=== PATIENT | male | born 1970 | race African-American/Black ===

== ENCOUNTER 2021-09-17 16:39 | Emergency (ER) | payer OTHER, SELFPAY ==
[~2021-09-17] VITALS: Ht 172.7 cm; Wt 69.1 kg
[~2021-09-17 16:39] MED LIST: AMLO1TAB25 PO; BACL1TAB8 PO; LEVE1INJ5 SC; NOVOINJ SC; PRAV40TA2 PO; TAPA10TA2 PO
[2021-09-17] MEDS ORDERED: BASA100I SQ (16:57)
[2021-09-17] MEDS ORDERED: ASPI81TA26 PO (17:27)
[2021-09-17 18:08] LABS: BASO # 0.1 10^3/uL (0.0-0.2); BASO % 1.3 % (0.0-1.0); EOS # 0.1 10^3/uL (0.0-0.5); EOS % 0.9 % (0.0-3.0); HEMATOCRIT 41.2 % (42.0-52.0); HEMOGLOBIN 13.5 g/dl (13.5-17.5); LYMPH # 2.5 10^3/uL (1.5-5.0); LYMPH % 46.2 % (24.0-44.0); MEAN CORPUSCULAR HEMOGLOBIN 29.4 pg (27.0-33.0); MEAN CORPUSCULAR HGB CONC 32.8 g/dl (32.0-36.5); MEAN CORPUSCULAR VOLUME 89.8 fl (80.0-96.0); MONO # 0.5 10^3/uL (0.0-0.8); MONO % 9.4 % (2.0-8.0); NEUTROPHILS # 2.2 10^3/uL (1.5-8.5); NEUTROPHILS % 41.8 % (36.0-66.0); PLATELET COUNT, AUTOMATED 311 10^3/uL (150-450); RED BLOOD COUNT 4.59 10^6/uL (4.30-6.10); WHITE BLOOD COUNT 5.3 10^3/uL (4.0-10.0)
[2021-09-17 18:30] VITALS: BP 133/81
[2021-09-17 18:32] LABS: ALBUMIN 3.8 GM/DL (3.2-5.2); ALT/SGPT 44 U/L (12-78); BILIRUBIN,DIRECT 0.2 MG/DL (0.0-0.2); BILIRUBIN,TOTAL 0.4 MG/DL (0.2-1.0); BLOOD UREA NITROGEN 13 MG/DL (7-18); CARBON DIOXIDE LEVEL 30 MEQ/L (21-32); CHLORIDE LEVEL 102 MEQ/L (98-107); CREATININE FOR GFR 0.94 MG/DL (0.70-1.30); GLOMERULAR FILTRATION RATE > 60.0 (>56); GLUCOSE, FASTING 269 MG/DL (70-100); LIPASE 80 U/L (73-393); POTASSIUM SERUM 3.9 MEQ/L (3.5-5.1); SODIUM LEVEL 137 MEQ/L (136-145); TOTAL PROTEIN 7.5 GM/DL (6.4-8.2)
[2021-09-17 18:36] LABS: CK-MB VALUE MASS < 1.0 NG/ML (<3.6); CPK CREATINE PHOSPHOKINASE 157 U/L (39-308); MB/CK RELATIVE INDEX 0.64 (< OR =4)
== END 2021-09-17 18:53 | disposition home or self-care (01) ==
LOC: M ED 16:39 → EDBD 16:39 → M ED 18:53
DX: R07.9 Chest pain, unspecified (principal); I45.19 Other right bundle-branch block; E11.9 Type 2 diabetes mellitus without complications; I10 Essential (primary) hypertension; E78.5 Hyperlipidemia, unspecified; F17.200 Nicotine dependence, unspecified, uncomplicated; Z79.4 Long term (current) use of insulin; Z79.899 Other long term (current) drug therapy

== ENCOUNTER → 2021-09-24 | Outpatient (REF) ==
[~2021-09-24] MED LIST changes: +ASPI81TA26 PO; +BASA100I SQ
== END ==
LOC: M PLAIMG 11:08
PROVIDERS: ATTEND Internal Medicine
DX: M54.9 Dorsalgia, unspecified (principal); M25.561 Pain in right knee; M17.11 Unilateral primary osteoarthritis, right knee

== ENCOUNTER 2022-03-02 10:46 | Emergency (ER) | payer OTHER ==
[~2022-03-02] VITALS: Ht 172.7 cm; Wt 64.0 kg
[2022-03-02] MEDS ORDERED: ACETAMINOPHEN 325 MG TAB PO ONE (14:05)
[2022-03-02 14:23] VITALS: BP 158/88
== END 2022-03-02 14:24 | disposition home or self-care (01) ==
LOC: M ED 10:46
DX: S60.221A Contusion of right hand, initial encounter (principal); W22.09XA Striking against other stationary object, initial encounter; E11.9 Type 2 diabetes mellitus without complications; I10 Essential (primary) hypertension; E78.5 Hyperlipidemia, unspecified; F17.200 Nicotine dependence, unspecified, uncomplicated; Z79.4 Long term (current) use of insulin; Z79.899 Other long term (current) drug therapy

== ENCOUNTER 2022-12-21 17:21 | Inpatient (IN) | payer OTHER ==
[~2022-12-21] VITALS: Ht 170.2 cm; Wt 57.9 kg
[~2022-12-21 17:21] MED LIST changes: +BASA100I SC; -BASA100I SQ; +INSU100I6 SC; -LEVE1INJ5 SC
[2022-12-21] MEDS ORDERED: METOCLOPRAMIDE INJ 10MG/2ML VIAL IV ONE (18:10)
[2022-12-21] MEDS ORDERED: ONDANSETRON 4MG 2ML VIAL IV ONE (19:30)
[2022-12-21] MEDS ORDERED: NS 1,000 ML IV ONE (19:45)
[2022-12-21 20:23] LABS: APPEARANCE, URINE CLEAR (CLEAR); BACTERIA, URINE AUTO NEGATIVE (NEGATIVE); BILIRUBIN, URINE AUTO NEGATIVE (NEGATIVE); BLOOD, URINE BLOOD NEGATIVE (NEGATIVE); COLOR, URINE STRAW (YELLOW); GLUCOSE, URINE (UA) AUTO 3+ mg/dL (NEGATIVE); KETONE, URINE AUTO 2+ mg/dL (NEGATIVE); LEUKOCYTE ESTERASE, URINE AUTO NEGATIVE (NEGATIVE); MUCUS, URINE SMALL (NEGATIVE); NITRITE, URINE AUTO NEGATIVE (NEGATIVE); PROTEIN, URINE AUTO NEGATIVE (NEGATIVE); RBC, URINE AUTO 0 /HPF (0-3); SPECIFIC GRAVITY URINE AUTO 1.017 (1.002-1.035); SQUAMOUS EPITHELIAL CELL UR AU 0 /HPF (0-6); UROBILINOGEN, URINE AUTO 0.2 mg/dL (0.0-2.0); WBC, URINE AUTO 0 /HPF (0-3)
[2022-12-21 20:27] LABS: CK-MB VALUE MASS 1.3 NG/ML (<3.6)
[2022-12-21 20:29] LABS: CPK CREATINE PHOSPHOKINASE 415 U/L (46-171); MB/CK RELATIVE INDEX 0.31 (< OR =4)
[2022-12-21 20:30] LABS: THYROID STIMULATING HORMONE 0.389 uIU/ML (0.55-4.78)
[2022-12-21 20:31] LABS: FREE T4 1.07 NG/DL (0.89-1.76)
[2022-12-21 20:35] LABS: ALBUMIN 4.9 G/DL (3.2-5.2); ALKALINE PHOSPHATASE 168 U/L (46-116); ALT/SGPT 35 U/L (7.0-40); AST/SGOT 52 U/L (<34); BILIRUBIN,DIRECT 0.9 MG/DL (<0.4); BILIRUBIN,TOTAL 2.8 MG/DL (0.3-1.2); BLOOD UREA NITROGEN 19 MG/DL (9-23); CALCIUM LEVEL 9.7 MG/DL (8.5-10.1); CARBON DIOXIDE LEVEL < 10.0 MMOL/L (20-31); CHLORIDE LEVEL 97 MMOL/L (98-107); CREATININE FOR GFR 0.66 MG/DL (0.70-1.30); GLOMERULAR FILTRATION RATE > 60.0 (>56); GLUCOSE, FASTING 80 MG/DL (60-100); LIPASE < 8 U/L (12-53); MAGNESIUM LEVEL 2.4 MG/DL (1.8-2.4); POTASSIUM SERUM 5.5 MMOL/L (3.5-5.1); SODIUM LEVEL 134 MMOL/L (136-145); TOTAL PROTEIN 9.1 G/DL (5.7-8.2)
[2022-12-21] MEDS ORDERED: PROMETHAZINE 25MG/ML 1ML VIAL IV ONE (20:50)
[2022-12-21] MEDS ORDERED: ISOVUE-370 76% 100ML VIAL As Ordered ONE (20:51)
[2022-12-21 20:54] LABS: BASO # 0.1 10^3/uL (0.0-0.2); BASO % 0.5 % (0.0-1.0); HEMATOCRIT 47.2 % (42.0-52.0); HEMOGLOBIN 15.4 g/dl (13.5-17.5); LYMPH # 0.5 10^3/uL (1.5-5.0); LYMPH % 3.1 % (24.0-44.0); MEAN CORPUSCULAR HEMOGLOBIN 31.1 pg (27.0-33.0); MEAN CORPUSCULAR HGB CONC 32.6 g/dl (32.0-36.5); MEAN CORPUSCULAR VOLUME 95.4 fl (80.0-96.0); MONO # 0.9 10^3/uL (0.0-0.8); MONO % 5.7 % (2.0-8.0); NEUTROPHILS # 13.6 10^3/uL (1.5-8.5); NEUTROPHILS % 90.2 % (36.0-66.0); PLATELET COUNT, AUTOMATED 334 10^3/uL (150-450); RED BLOOD COUNT 4.95 10^6/uL (4.30-6.10); WHITE BLOOD COUNT 15.1 10^3/uL (4.0-10.0)
[2022-12-21 21:26] LABS: ABG BASE EXCESS -19.7 (-2.0-2.0); ABG O2 SATURATION 96.5 % (95.0-99.0); ABG PARTIAL PRESSURE CO2 25.1 mmHg (35.0-45.0); ABG PARTIAL PRESSURE O2 108.8 mmHg (75.0-100.0); ABG STANDARD HCO3 10.3 MEQ/L (22.0-26.0); ABG TOTAL CO2 8.8 MEQ/L (22.0-29.0); ABG pH (ARTERIAL) 7.121 UNITS (7.350-7.450)
[2022-12-21] MEDS ORDERED: PIPERACILLIN/TAZOBACTAM SOD 4.5 GM in D5W MINI-BAG PLUS 50 ML IV ONE (21:35)
[2022-12-21] MEDS ORDERED: HumuLIN R (REGULAR) INSULIN (NovoLIN R) **100U/ML** PER UNIT IV ONE (21:35)
[2022-12-21 22:04] LABS: ACETONE/KETONE > 4.50 MMOL/L (0.02-0.27)
[2022-12-21 22:42] LABS: CK-MB VALUE MASS < 1.0 NG/ML (<3.6); ETHYL ALCOHOL (ETHANOL) < 0.003 % (0.000-0.010)
[2022-12-21 22:50] LABS: BLOOD UREA NITROGEN 20 MG/DL (9-23); CALCIUM LEVEL 8.7 MG/DL (8.5-10.1); CARBON DIOXIDE LEVEL 12 MMOL/L (20-31); CHLORIDE LEVEL 100 MMOL/L (98-107); CPK CREATINE PHOSPHOKINASE 137 U/L (46-171); GLOMERULAR FILTRATION RATE > 60.0 (>56); GLUCOSE, FASTING 404 MG/DL (60-100); MB/CK RELATIVE INDEX 0.72 (< OR =4); POTASSIUM SERUM 6.2 MMOL/L (3.5-5.1); SODIUM LEVEL 134 MMOL/L (136-145)
[2022-12-21] MEDS ORDERED: INSULIN REGULAR IN 0.9 % NACL 100 UNIT in IV 1 EA IV SCH ×2 (22:55)
[2022-12-21] MEDS ORDERED: INSULIN IV RATE CHANGE DOCUMENTATION ML/HR XX SCH (22:55)
[2022-12-21 23:25] LABS: HEMOGLOBIN A1c 9.9 % (4.0-6.0)
[2022-12-21 23:35] LABS: RSV AMPLIFICATION NEGATIVE (NEGATIVE)
[2022-12-22] VITALS (15 sets, daily range): BP systolic 104–172; BP diastolic 55–89
[2022-12-22] MEDS ORDERED: NS 1,000 ML IV ONE ×2 (01:00)
[2022-12-22] MEDS ORDERED: INSULIN REGULAR IN 0.9 % NACL 100 UNIT in IV 1 EA IV SCH ×2 (01:00)
[2022-12-22] MEDS ORDERED: NS 1,000 ML IV SCH (01:00)
[2022-12-22] MEDS: INSULIN IV RATE CHANGE DOCUMENTATION ML/HR XX SCH ×3 (01:10→03:09)
[2022-12-22] MEDS ORDERED: LORazepam 2 MG/ML 1ML VIAL IV STA (01:27)
[2022-12-22] MEDS ORDERED: THIAMINE 200MG 2ML VIAL IM ONE (02:00)
[2022-12-22 02:07] LABS: BLOOD UREA NITROGEN 10 MG/DL (9-23); CALCIUM LEVEL 8.3 MG/DL (8.5-10.1); CARBON DIOXIDE LEVEL < 10.0 MMOL/L (20-31); CHLORIDE LEVEL 106 MMOL/L (98-107); CREATININE FOR GFR 0.93 MG/DL (0.70-1.30); GLOMERULAR FILTRATION RATE > 60.0 (>56); GLUCOSE, FASTING 240 MG/DL (60-100); PHOSPHORUS LEVEL 3.5 MG/DL (2.5-4.9); SODIUM LEVEL 134 MMOL/L (136-145)
[2022-12-22] MEDS ORDERED: PRAV40TA2 PO (02:08)
[2022-12-22] MEDS ORDERED: MULT-40 PO (02:08)
[2022-12-22] MEDS ORDERED: ASPI-161 PO (02:08)
[2022-12-22] MEDS ORDERED: HOME MED LIST COMPLETE! XX SCH ×2 (02:10)
[2022-12-22] MEDS ORDERED: D5W/0.9% SODIUM CHLORIDE 1,000 ML IV SCH (03:10)
[2022-12-22] MEDS ORDERED: NS 500 ML IV ONE (04:10)
[2022-12-22] MEDS: HEPARIN SOD (PORCINE) 5000UNITS/ML 1ML VIAL/SYRINGE SC SCH ×3 (05:01→21:57)
[2022-12-22 05:30] LABS: BLOOD UREA NITROGEN 13 MG/DL (9-23); CALCIUM LEVEL 7.2 MG/DL (8.5-10.1); CARBON DIOXIDE LEVEL 20 MMOL/L (20-31); CHLORIDE LEVEL 111 MMOL/L (98-107); CREATININE FOR GFR 0.75 MG/DL (0.70-1.30); GLOMERULAR FILTRATION RATE > 60.0 (>56); GLUCOSE, FASTING 186 MG/DL (60-100); PHOSPHORUS LEVEL 1.5 MG/DL (2.5-4.9); POTASSIUM SERUM 4.3 MMOL/L (3.5-5.1); SODIUM LEVEL 139 MMOL/L (136-145)
[2022-12-22] MEDS ORDERED: LORazepam 2 MG TAB PO PRN (06:10)
[2022-12-22] MEDS ORDERED: GLUCOSE 4GM CHEW TABLET PO PRN (06:10)
[2022-12-22] MEDS ORDERED: DEXTROSE 50% 50ML SYRINGE IV PRN (06:10)
[2022-12-22] MEDS ORDERED: GLUCAGON INJ 1MG VIAL SC PRN (06:10)
[2022-12-22] MEDS: LEVEMIR (INSULIN DETEMIR) 1 UNITS/0.01ML SC SCH (07:27)
[2022-12-22] MEDS: INSULIN LISPRO (NovoLOG) PER UNIT SC SCH ×3 (07:27→17:48)
[2022-12-22 07:40] LABS: VENOUS BASE EXCESS -4.5 (-2.0-2.0); VENOUS HCO3 21.2 MEQ/L (23.0-27.0); VENOUS O2 SATURATION 97.1 % (60.0-80.0); VENOUS PARTIAL PRESSURE CO2 41.5 mmHg (38.0-50.0); VENOUS PARTIAL PRESSURE O2 97.3 mmHg (30.0-50.0); VENOUS PH 7.326 UNITS (7.330-7.430); VENOUS STANDARD HCO3 20.7 MEQ/L; VENOUS TOTAL CO2 22.5 MEQ/L (24.0-28.0)
[2022-12-22] MEDS ORDERED: SODIUM PHOSPHATE INJ 20 MMOL in D5W 250 ML IV ONE (08:00)
[2022-12-22] MEDS: ASPIRIN 81MG ENTERIC TABLET PO SCH (08:08)
[2022-12-22] MEDS: MULTIVITAMINS/MINERALS THERAP 1 TAB PO SCH (08:08)
[2022-12-22] MEDS: FOLIC ACID 1MG TAB PO SCH (08:08)
[2022-12-22] MEDS: PRAVASTATIN 20 MG TAB PO SCH (08:08)
[2022-12-22] MEDS: PANTOPRAZOLE 40MG VIAL IV SCH (08:08)
[2022-12-22 08:16] LABS: BLOOD UREA NITROGEN 11 MG/DL (9-23); CALCIUM LEVEL 7.4 MG/DL (8.5-10.1); CARBON DIOXIDE LEVEL 22 MMOL/L (20-31); CHLORIDE LEVEL 113 MMOL/L (98-107); CREATININE FOR GFR 0.75 MG/DL (0.70-1.30); GLOMERULAR FILTRATION RATE > 60.0 (>56); GLUCOSE, FASTING 143 MG/DL (60-100); POTASSIUM SERUM 4.2 MMOL/L (3.5-5.1); SODIUM LEVEL 140 MMOL/L (136-145)
[2022-12-22] MEDS: THIAMINE 100 MG TAB PO SCH ×2 (12:33→20:21)
[2022-12-22] MEDS: OXAZEPAM 10MG CAP PO SCH ×2 (15:18→23:50)
[2022-12-22] MEDS ORDERED: LEVEMIR (INSULIN DETEMIR) 1 UNITS/0.01ML SC SCH (21:00)
[2022-12-22] MEDS ORDERED: INSULIN LISPRO (NovoLOG) PER UNIT SC SCH (21:00)
[2022-12-23] VITALS: BP 107/62
[2022-12-23 04:00] VITALS: BP 132/79
[2022-12-23] MEDS: HEPARIN SOD (PORCINE) 5000UNITS/ML 1ML VIAL/SYRINGE SC SCH (05:04)
[2022-12-23 05:37] LABS: BASO # 0.1 10^3/uL (0.0-0.2); BASO % 0.8 % (0.0-1.0); EOS % 0.3 % (0.0-3.0); HEMATOCRIT 40.3 % (42.0-52.0); HEMOGLOBIN 13.6 g/dl (13.5-17.5); LYMPH # 2.2 10^3/uL (1.5-5.0); LYMPH % 29.3 % (24.0-44.0); MEAN CORPUSCULAR HEMOGLOBIN 30.9 pg (27.0-33.0); MEAN CORPUSCULAR HGB CONC 33.7 g/dl (32.0-36.5); MEAN CORPUSCULAR VOLUME 91.6 fl (80.0-96.0); MONO # 0.8 10^3/uL (0.0-0.8); MONO % 10.1 % (2.0-8.0); NEUTROPHILS # 4.4 10^3/uL (1.5-8.5); NEUTROPHILS % 59.2 % (36.0-66.0); PLATELET COUNT, AUTOMATED 295 10^3/uL (150-450); WHITE BLOOD COUNT 7.4 10^3/uL (4.0-10.0)
[2022-12-23 06:18] LABS: ALKALINE PHOSPHATASE 101 U/L (46-116); ALT/SGPT 22 U/L (7.0-40); AST/SGOT 34 U/L (<34); BILIRUBIN,TOTAL 0.7 MG/DL (0.3-1.2); BLOOD UREA NITROGEN 11 MG/DL (9-23); CALCIUM LEVEL 8.6 MG/DL (8.5-10.1); CARBON DIOXIDE LEVEL 25 MMOL/L (20-31); CHLORIDE LEVEL 108 MMOL/L (98-107); CREATININE FOR GFR 0.62 MG/DL (0.70-1.30); GLOMERULAR FILTRATION RATE > 60.0 (>56); GLUCOSE, FASTING 257 MG/DL (60-100); POTASSIUM SERUM 4.3 MMOL/L (3.5-5.1); SODIUM LEVEL 140 MMOL/L (136-145); TOTAL PROTEIN 5.9 G/DL (5.7-8.2)
[2022-12-23] MEDS: INSULIN LISPRO (NovoLOG) PER UNIT SC SCH (07:30)
[2022-12-23 08:00] VITALS: BP 136/83
[2022-12-23] MEDS: ASPIRIN 81MG ENTERIC TABLET PO SCH (08:06)
[2022-12-23] MEDS: PRAVASTATIN 20 MG TAB PO SCH (08:06)
[2022-12-23] MEDS: FOLIC ACID 1MG TAB PO SCH (08:06)
[2022-12-23] MEDS: MULTIVITAMINS/MINERALS THERAP 1 TAB PO SCH (08:06)
[2022-12-23 08:07] VITALS: BP 136/83
[2022-12-23] MEDS: THIAMINE 100 MG TAB PO SCH (08:07)
[2022-12-23] MEDS: PANTOPRAZOLE 40MG VIAL IV SCH (08:08)
[2022-12-23] MEDS: LEVEMIR (INSULIN DETEMIR) 1 UNITS/0.01ML SC SCH (08:08)
[2022-12-23] MEDS ORDERED: THIA100TA PO (08:29)
== END 2022-12-23 10:15 | disposition home or self-care (01) | DRG 420 ==
LOC: M ED 17:21 → M ED INP 23:17 → M ICU 12-22 01:05
PROVIDERS: ADMIT Internal Medicine; ATTEND Family Medicine
DX: E11.10 Type 2 diabetes mellitus with ketoacidosis without coma (principal); E87.5 Hyperkalemia; I10 Essential (primary) hypertension; E80.6 Other disorders of bilirubin metabolism; F10.10 Alcohol abuse, uncomplicated; F17.210 Nicotine dependence, cigarettes, uncomplicated; R74.01 Elevation of levels of liver transaminase levels; Z79.82 Long term (current) use of aspirin; Z79.4 Long term (current) use of insulin; E05.90 Thyrotoxicosis, unspecified without thyrotoxic crisis or storm

== ENCOUNTER 2023-04-02 11:11 | Emergency (ER) | payer OTHER ==
[~2023-04-02] VITALS: Ht 172.7 cm; Wt 60.2 kg
[~2023-04-02 11:11] MED LIST changes: +ASPI-161 PO; +MULT-40 PO; +THIA100TA PO
[2023-04-02 11:13] VITALS: TEMP 97.2
[2023-04-02] MEDS ORDERED: GABA-282 PO (12:14)
[2023-04-02 12:44] VITALS: BP 132/81; O2SAT 99
== END 2023-04-02 12:44 | disposition home or self-care (01) ==
LOC: M ED 11:11
DX: E10.40 Type 1 diabetes mellitus with diabetic neuropathy, unspecified (principal); K21.9 Gastro-esophageal reflux disease without esophagitis; E03.9 Hypothyroidism, unspecified; F10.10 Alcohol abuse, uncomplicated; F17.200 Nicotine dependence, unspecified, uncomplicated; Z79.82 Long term (current) use of aspirin; Z79.4 Long term (current) use of insulin; Z79.899 Other long term (current) drug therapy

== ENCOUNTER → 2023-04-22 | Outpatient (REF) | payer OTHER ==
[~2023-04-22] MED LIST changes: +GABA-282 PO
[2023-04-22 18:53] LABS: HEMOGLOBIN A1c 10.1 % (4.0-6.0)
[2023-04-22 18:57] LABS: BASO # 0.1 10^3/uL (0.0-0.2); BASO % 1.7 % (0.0-1.0); EOS # 0.1 10^3/uL (0.0-0.5); EOS % 1.5 % (0.0-3.0); HEMATOCRIT 42.7 % (42.0-52.0); HEMOGLOBIN 13.9 g/dl (13.5-17.5); LYMPH # 1.8 10^3/uL (1.5-5.0); LYMPH % 38.5 % (24.0-44.0); MEAN CORPUSCULAR HEMOGLOBIN 30.3 pg (27.0-33.0); MEAN CORPUSCULAR HGB CONC 32.6 g/dl (32.0-36.5); MONO # 0.6 10^3/uL (0.0-0.8); MONO % 13.1 % (2.0-8.0); NEUTROPHILS # 2.1 10^3/uL (1.5-8.5); PLATELET COUNT, AUTOMATED 305 10^3/uL (150-450); RED BLOOD COUNT 4.59 10^6/uL (4.30-6.10); WHITE BLOOD COUNT 4.7 10^3/uL (4.0-10.0)
[2023-04-22 19:08] LABS: FREE T4 0.97 NG/DL (0.89-1.76); THYROID STIMULATING HORMONE 0.722 uIU/ML (0.55-4.78)
[2023-04-22 19:10] LABS: ALBUMIN 3.6 G/DL (3.2-5.2); ALKALINE PHOSPHATASE 103 U/L (46-116); ALT/SGPT 15 U/L (7.0-40); AST/SGOT 13 U/L (<34); BILIRUBIN,TOTAL 0.6 MG/DL (0.3-1.2); BLOOD UREA NITROGEN 11 MG/DL (9-23); CALCIUM LEVEL 9.2 MG/DL (8.5-10.1); CARBON DIOXIDE LEVEL 32 MMOL/L (20-31); CHLORIDE LEVEL 103 MMOL/L (98-107); CREATININE FOR GFR 0.74 MG/DL (0.70-1.30); GLOMERULAR FILTRATION RATE > 60.0 (>56); GLUCOSE, FASTING 163 MG/DL (60-100); POTASSIUM SERUM 4.2 MMOL/L (3.5-5.1); SODIUM LEVEL 141 MMOL/L (136-145); TOTAL PROTEIN 7.2 G/DL (5.7-8.2)
[2023-04-22 19:12] LABS: VITAMIN B12 LEVEL 500 PG/ML (211-911)
== END ==
LOC: M LAB REF 17:27
PROVIDERS: ATTEND Family Medicine Addiction Medicine
DX: E05.90 Thyrotoxicosis, unspecified without thyrotoxic crisis or storm (principal); E11.40 Type 2 diabetes mellitus with diabetic neuropathy, unspecified

== ENCOUNTER 2023-07-02 00:05 | Emergency (ER) | payer OTHER ==
[~2023-07-02] VITALS: Ht 172.7 cm; Wt 65.4 kg
[2023-07-02] MEDS ORDERED: NS 1,000 ML IV ONE ×2 (00:15→08:05)
[2023-07-02 00:37] LABS: ABG BASE EXCESS -3.3 (-2.0-2.0); ABG HCO3 23.2 MMOL/L (22.0-26.0); ABG PARTIAL PRESSURE CO2 47.1 mmHg (35.0-45.0); ABG PARTIAL PRESSURE O2 218.3 mmHg (75.0-100.0); ABG STANDARD HCO3 21.7 MMOL/L. (22.0-26.0); ABG TOTAL CO2 24.6 MMOL/L (22.0-29.0)
[2023-07-02 01:20] LABS: BASO # 0.1 10^3/uL (0.0-0.2); BASO % 0.8 % (0.0-1.0); EOS % 0.2 % (0.0-3.0); HEMATOCRIT 43.1 % (42.0-52.0); HEMOGLOBIN 14.4 g/dl (13.5-17.5); LYMPH # 1.2 10^3/uL (1.5-5.0); LYMPH % 14.5 % (24.0-44.0); MEAN CORPUSCULAR HEMOGLOBIN 31.5 pg (27.0-33.0); MEAN CORPUSCULAR HGB CONC 33.4 g/dl (32.0-36.5); MEAN CORPUSCULAR VOLUME 94.3 fl (80.0-96.0); MONO # 0.7 10^3/uL (0.0-0.8); NEUTROPHILS # 6.3 10^3/uL (1.5-8.5); PLATELET COUNT, AUTOMATED 267 10^3/uL (150-450); RED BLOOD COUNT 4.57 10^6/uL (4.30-6.10); WHITE BLOOD COUNT 8.3 10^3/uL (4.0-10.0)
[2023-07-02 02:00] VITALS: TEMP 96
[2023-07-02 02:01] LABS: ALKALINE PHOSPHATASE 99 U/L (46-116); ALT/SGPT 24 U/L (7.0-40); AST/SGOT 25 U/L (<34); BILIRUBIN,DIRECT 0.2 MG/DL (<0.4); BILIRUBIN,TOTAL 0.6 MG/DL (0.3-1.2); BLOOD UREA NITROGEN 7 MG/DL (9-23); CARBON DIOXIDE LEVEL 24 MMOL/L (20-31); CHLORIDE LEVEL 102 MMOL/L (98-107); CREATININE FOR GFR 0.73 MG/DL (0.70-1.30); GLOMERULAR FILTRATION RATE > 60.0 (>56); GLUCOSE, FASTING 228 MG/DL (60-100); SALICYLATE LEVEL < 3.0 MG/DL (<30); SODIUM LEVEL 141 MMOL/L (136-145); TOTAL PROTEIN 7.6 G/DL (5.7-8.2)
[2023-07-02 02:04] LABS: THYROID STIMULATING HORMONE 1.759 uIU/ML (0.55-4.78)
[2023-07-02 02:05] LABS: CPK CREATINE PHOSPHOKINASE 222 U/L (46-171)
[2023-07-02 02:31] LABS: RSV AMPLIFICATION NEGATIVE (NEGATIVE)
[2023-07-02 04:30] LABS: AMPHETAMINES LEVEL URINE NEGATIVE (NEGATIVE); BARBITURATES URINE NEGATIVE (NEGATIVE)
[2023-07-02 04:31] LABS: BENZODIAZEPINES URINE NEGATIVE (NEGATIVE); METHADONE URINE NEGATIVE (NEGATIVE); OPIATES URINE NEGATIVE (NEGATIVE); PHENCYCLIDINE URINE NEGATIVE (NEGATIVE)
[2023-07-02 04:42] LABS: CANNABINOIDS URINE POSITIVE (NEGATIVE); COCAINE METABOLITE URINE POSITIVE (NEGATIVE)
[2023-07-02] MEDS ORDERED: PANTOPRAZOLE 40MG VIAL IV ONE (05:25)
[2023-07-02] MEDS ORDERED: ONDANSETRON 4MG 2ML VIAL IV ONE (06:40)
[2023-07-02] MEDS ORDERED: PROMETHAZINE 25MG/ML 1ML VIAL IV ONE (08:05)
[2023-07-02 13:00] VITALS: BP 147/82; O2SAT 91
== END 2023-07-02 13:43 | disposition home or self-care (01) ==
LOC: M ED 00:05 → EDBD 00:05 → M ED 13:43
DX: F19.129 Other psychoactive substance abuse with intoxication, unspecified (principal); F10.10 Alcohol abuse, uncomplicated; F14.10 Cocaine abuse, uncomplicated; I45.10 Unspecified right bundle-branch block; K21.9 Gastro-esophageal reflux disease without esophagitis; E11.9 Type 2 diabetes mellitus without complications; I10 Essential (primary) hypertension; E03.9 Hypothyroidism, unspecified; Z88.8 Allergy status to other drugs, medicaments and biological substances; Z79.4 Long term (current) use of insulin; Z79.891 Long term (current) use of opiate analgesic; Z79.899 Other long term (current) drug therapy
CPT/HCPCS: 36415; 36600; 80048; 80076; 80143; 80307; 82077; 82550; 82803; 83605; 84443; 85025; 87631; 93005; 93041; 94760; 96361; 96374; 96375; 99285; C9113; J2405; J2550

== ENCOUNTER 2023-07-03 07:24 | Inpatient (IN) | payer OTHER ==
[~2023-07-03] VITALS: Ht 170.2 cm; Wt 63.1 kg
[2023-07-03] VITALS (21 sets, daily range): BP systolic 120–156; BP diastolic 59–84; TEMP 98.1–101.9; O2SAT 86–96
[2023-07-03] MEDS ORDERED: NS 1,000 ML IV ONE ×4 (07:45→11:00)
[2023-07-03 07:56] LABS: VENOUS BASE EXCESS -13.3 (-2.0-2.0); VENOUS HCO3 16.9 MMOL/L (23.0-27.0); VENOUS O2 SATURATION 70.1 % (60.0-80.0); VENOUS PARTIAL PRESSURE CO2 56.1 mmHg (38.0-50.0); VENOUS PARTIAL PRESSURE O2 42.3 mmHg (30.0-50.0); VENOUS PH 7.096 UNITS (7.330-7.430); VENOUS STANDARD HCO3 13.9 MMOL/L; VENOUS TOTAL CO2 18.6 MMOL/L (24.0-28.0)
[2023-07-03 08:02] LABS: BASO % 0.1 % (0.0-1.0); HEMATOCRIT 44.8 % (42.0-52.0); HEMOGLOBIN 14.4 g/dl (13.5-17.5); LYMPH # 0.3 10^3/uL (1.5-5.0); LYMPH % 2.3 % (24.0-44.0); MEAN CORPUSCULAR HEMOGLOBIN 30.9 pg (27.0-33.0); MEAN CORPUSCULAR HGB CONC 32.1 g/dl (32.0-36.5); MEAN CORPUSCULAR VOLUME 96.1 fl (80.0-96.0); MONO # 0.5 10^3/uL (0.0-0.8); MONO % 4.6 % (2.0-8.0); NEUTROPHILS # 10.7 10^3/uL (1.5-8.5); NEUTROPHILS % 92.7 % (36.0-66.0); PLATELET COUNT, AUTOMATED 326 10^3/uL (150-450); RED BLOOD COUNT 4.66 10^6/uL (4.30-6.10); WHITE BLOOD COUNT 11.6 10^3/uL (4.0-10.0)
[2023-07-03] MEDS ORDERED: INSULIN REGULAR IN 0.9 % NACL 100 UNIT in IV 1 EA IV SCH ×2 (08:25)
[2023-07-03 08:32] LABS: ETHYL ALCOHOL (ETHANOL) < 0.003 % (0.000-0.010)
[2023-07-03 08:34] LABS: SALICYLATE LEVEL < 3.0 MG/DL (<30)
[2023-07-03 08:37] LABS: THYROID STIMULATING HORMONE 0.443 uIU/ML (0.55-4.78)
[2023-07-03 08:45] LABS: HEMOGLOBIN A1c 9.7 % (4.0-6.0)
[2023-07-03 08:53] LABS: OSMOLALITY SERUM 330 MOSM/KG (275-295)
[2023-07-03 08:56] LABS: ACETONE/KETONE > 4.50 MMOL/L (0.02-0.27); ALBUMIN 4.1 G/DL (3.2-5.2); ALKALINE PHOSPHATASE 143 U/L (46-116); ALT/SGPT 55 U/L (7.0-40); AST/SGOT 143 U/L (<34); BILIRUBIN,DIRECT 0.3 MG/DL (<0.4); BILIRUBIN,TOTAL 0.8 MG/DL (0.3-1.2); BLOOD UREA NITROGEN 30 MG/DL (9-23); CALCIUM LEVEL 8.9 MG/DL (8.5-10.1); CARBON DIOXIDE LEVEL 20 MMOL/L (20-31); CHLORIDE LEVEL 92 MMOL/L (98-107); CREATININE FOR GFR 1.53 MG/DL (0.70-1.30); GLOMERULAR FILTRATION RATE > 60.0 (>56); GLUCOSE, FASTING 673 MG/DL (60-100); MAGNESIUM LEVEL 2.6 MG/DL (1.8-2.4); SODIUM LEVEL 131 MMOL/L (136-145); TOTAL PROTEIN 7.9 G/DL (5.7-8.2)
[2023-07-03] MEDS ORDERED: LORazepam 2 MG TAB PO PRN (09:20)
[2023-07-03 09:47] LABS: ABG BASE EXCESS -14.1 (-2.0-2.0); ABG HCO3 14.4 MMOL/L (22.0-26.0); ABG O2 SATURATION 89.4 % (95.0-99.0); ABG PARTIAL PRESSURE CO2 43.2 mmHg (35.0-45.0); ABG PARTIAL PRESSURE O2 66.8 mmHg (75.0-100.0); ABG STANDARD HCO3 13.6 MMOL/L. (22.0-26.0); ABG TOTAL CO2 15.7 MMOL/L (22.0-29.0)
[2023-07-03 09:48] LABS: ABG pH (ARTERIAL) 7.141 UNITS (7.350-7.450)
[2023-07-03] MEDS ORDERED: CALCIUM CHLORIDE 10% 1 GM/10 ML SYR IV ONE (09:55)
[2023-07-03] MEDS ORDERED: SODIUM BICARBONATE 8.4% INJ 50ML SYRINGE IV ONE (09:55)
[2023-07-03] MEDS ORDERED: PATIROMER SORBITEX CALCIUM 8.4 GM POWDER PACKET (VELTASSA) PO ONE (09:55)
[2023-07-03 10:08] LABS: AMPHETAMINES LEVEL URINE NEGATIVE (NEGATIVE); BARBITURATES URINE NEGATIVE (NEGATIVE); BENZODIAZEPINES URINE NEGATIVE (NEGATIVE); CANNABINOIDS URINE NEGATIVE (NEGATIVE); METHADONE URINE NEGATIVE (NEGATIVE); OPIATES URINE NEGATIVE (NEGATIVE); PHENCYCLIDINE URINE NEGATIVE (NEGATIVE)
[2023-07-03 10:10] LABS: COCAINE METABOLITE URINE POSITIVE (NEGATIVE)
[2023-07-03] MEDS ORDERED: NALOXONE INJ 0.4MG/1ML VIAL IV STA ×4 (10:13→21:10)
[2023-07-03] MEDS ORDERED: CALCIUM CHLORIDE 10% 1 GM in D5W 100 ML IV ONE (10:15)
[2023-07-03] MEDS ORDERED: INSULIN IV RATE CHANGE DOCUMENTATION ML/HR XX SCH (10:15)
[2023-07-03] MEDS ORDERED: MED REC IN PROGRESS XX SCH (10:20)
[2023-07-03] MEDS ORDERED: SODIUM BICARBONATE 8.4% INJ 50ML SYRINGE IV SCH (10:30)
[2023-07-03] MEDS: PANTOPRAZOLE 40MG VIAL IV SCH (10:36)
[2023-07-03] MEDS: MULTIVITAMINS/MINERALS THERAP 1 TAB PO SCH (10:36)
[2023-07-03] MEDS: THIAMINE 100 MG TAB PO SCH ×2 (10:36→20:52)
[2023-07-03] MEDS: INSULIN REGULAR IN 0.9 % NACL 100 UNIT in IV 1 EA IV SCH ×4 (10:37→11:38)
[2023-07-03] MEDS ORDERED: HOME MED LIST COMPLETE! XX SCH (10:45)
[2023-07-03] MEDS: IPRATROPIUM 0.5MG/ALBUTEROL 2.5MG INH SOL UD 3ML (DUONEB) NEB SCH ×3 (11:23→19:52)
[2023-07-03 12:12] LABS: BLOOD UREA NITROGEN 30 MG/DL (9-23); CALCIUM LEVEL 8.9 MG/DL (8.5-10.1); CARBON DIOXIDE LEVEL 23 MMOL/L (20-31); CHLORIDE LEVEL 103 MMOL/L (98-107); CPK CREATINE PHOSPHOKINASE 6438 U/L (46-171); CREATININE FOR GFR 1.26 MG/DL (0.70-1.30); GLOMERULAR FILTRATION RATE > 60.0 (>56); GLUCOSE, FASTING 432 MG/DL (60-100); POTASSIUM SERUM 5.1 MMOL/L (3.5-5.1); SODIUM LEVEL 140 MMOL/L (136-145)
[2023-07-03] MEDS ORDERED: ONDANSETRON 4MG 2ML VIAL IV PRN (12:40)
[2023-07-03] MEDS: INSULIN IV RATE CHANGE DOCUMENTATION ML/HR XX SCH ×3 (13:07→15:16)
[2023-07-03] MEDS ORDERED: D5W/0.45% SODIUM CHLORIDE 1,000 ML IV SCH (15:30)
[2023-07-03] MEDS ORDERED: NALOXONE INJ 0.4MG/1ML VIAL IV PRN (17:00)
[2023-07-03 17:45] LABS: ABG BASE EXCESS -4.8 (-2.0-2.0); ABG HCO3 20.3 MMOL/L (22.0-26.0); ABG O2 SATURATION 89.7 % (95.0-99.0); ABG PARTIAL PRESSURE O2 54.9 mmHg (75.0-100.0); ABG STANDARD HCO3 20.3 MMOL/L. (22.0-26.0); ABG TOTAL CO2 21.5 MMOL/L (22.0-29.0); ABG pH (ARTERIAL) 7.346 UNITS (7.350-7.450)
[2023-07-03 18:30] LABS: BLOOD UREA NITROGEN 19 MG/DL (9-23); CALCIUM LEVEL 8.9 MG/DL (8.5-10.1); CARBON DIOXIDE LEVEL 26 MMOL/L (20-31); CHLORIDE LEVEL 108 MMOL/L (98-107); GLOMERULAR FILTRATION RATE > 60.0 (>56); GLUCOSE, FASTING 166 MG/DL (60-100); MAGNESIUM LEVEL 2.1 MG/DL (1.8-2.4); PHOSPHORUS LEVEL 3.3 MG/DL (2.5-4.9); POTASSIUM SERUM 4.7 MMOL/L (3.5-5.1); SODIUM LEVEL 143 MMOL/L (136-145)
[2023-07-03] MEDS ORDERED: LEVEMIR (INSULIN DETEMIR) 1 UNITS/0.01ML SC STA (18:31)
[2023-07-03] MEDS ORDERED: GLUCOSE 4GM CHEW TABLET PO PRN (18:35)
[2023-07-03] MEDS ORDERED: DEXTROSE 50% 50ML SYRINGE IV PRN (18:35)
[2023-07-03] MEDS ORDERED: GLUCAGON INJ 1MG VIAL SC PRN (18:35)
[2023-07-03] MEDS: INSULIN LISPRO (NovoLOG) PER UNIT SC SCH (20:40)
[2023-07-03] MEDS ORDERED: BACLOFEN 10 MG TAB PO ONE (20:45)
[2023-07-03] MEDS ORDERED: LEVEMIR (INSULIN DETEMIR) 1 UNITS/0.01ML SC SCH (21:00)
[2023-07-03 21:34] LABS: ABG BASE EXCESS -4.7 (-2.0-2.0); ABG HCO3 20.9 MMOL/L (22.0-26.0); ABG PARTIAL PRESSURE CO2 40.6 mmHg (35.0-45.0); ABG PARTIAL PRESSURE O2 53.9 mmHg (75.0-100.0); ABG STANDARD HCO3 20.4 MMOL/L. (22.0-26.0); ABG TOTAL CO2 22.2 MMOL/L (22.0-29.0)
[2023-07-03] MEDS ORDERED: ALBUTEROL SULFATE 2.5MG/0.5ML INH NEB SOLN INH PRN (21:35)
[2023-07-03] MEDS: PIPERACILLIN/TAZOBACTAM SOD 4.5 GM in D5W MINI-BAG PLUS 50 ML IV SCH (22:02)
[2023-07-03 22:22] LABS: HEMATOCRIT 35.8 % (42.0-52.0); HEMOGLOBIN 12.1 g/dl (13.5-17.5); MEAN CORPUSCULAR HEMOGLOBIN 30.9 pg (27.0-33.0); MEAN CORPUSCULAR HGB CONC 33.8 g/dl (32.0-36.5); MEAN CORPUSCULAR VOLUME 91.3 fl (80.0-96.0); PLATELET COUNT, AUTOMATED 242 10^3/uL (150-450); RED BLOOD COUNT 3.92 10^6/uL (4.30-6.10); WHITE BLOOD COUNT 9.3 10^3/uL (4.0-10.0)
[2023-07-03 22:42] LABS: ALBUMIN 2.7 G/DL (3.2-5.2); ALKALINE PHOSPHATASE 87 U/L (46-116); ALT/SGPT 47 U/L (7.0-40); AST/SGOT 171 U/L (<34); BILIRUBIN,TOTAL 0.8 MG/DL (0.3-1.2); BLOOD UREA NITROGEN 16 MG/DL (9-23); CALCIUM LEVEL 8.5 MG/DL (8.5-10.1); CARBON DIOXIDE LEVEL 25 MMOL/L (20-31); CHLORIDE LEVEL 106 MMOL/L (98-107); CREATININE FOR GFR 0.83 MG/DL (0.70-1.30); GLOMERULAR FILTRATION RATE > 60.0 (>56); GLUCOSE, FASTING 300 MG/DL (60-100); POTASSIUM SERUM 4.2 MMOL/L (3.5-5.1); SODIUM LEVEL 140 MMOL/L (136-145); TOTAL PROTEIN 5.4 G/DL (5.7-8.2)
[2023-07-03 22:53] LABS: ATYPICAL LYMPH 1 % (0-5); LYMPHOCYTES 3 % (16-44); MONOCYTES 5 % (0-5); NEUTROPHILS 84 % (28-66)
[2023-07-03 22:54] LABS: PLATELET ESTIMATE NORMAL (NORMAL)
[2023-07-03] MEDS ORDERED: AZITHROMYCIN INJ 500 MG, VIAL MATE ADAPTER 1 EACH in D5W 250 ML IV SCH (23:00)
[2023-07-04] VITALS (21 sets, daily range): BP systolic 104–146; BP diastolic 59–92; TEMP 98.3–100.1; O2SAT 86–99
[2023-07-04 00:09] LABS: ABG BASE EXCESS -1.4 (-2.0-2.0); ABG HCO3 25.3 MMOL/L (22.0-26.0); ABG PARTIAL PRESSURE CO2 50.8 mmHg (35.0-45.0); ABG STANDARD HCO3 23.2 MMOL/L. (22.0-26.0); ABG TOTAL CO2 26.9 MMOL/L (22.0-29.0); ABG pH (ARTERIAL) 7.315 UNITS (7.350-7.450)
[2023-07-04] MEDS ORDERED: NALOXONE HCL INJ 4 MG in D5W 496 ML IV SCH (01:00)
[2023-07-04] MEDS: PIPERACILLIN/TAZOBACTAM SOD 4.5 GM in D5W MINI-BAG PLUS 50 ML IV SCH ×4 (03:27→22:52)
[2023-07-04] MEDS: IPRATROPIUM 0.5MG/ALBUTEROL 2.5MG INH SOL UD 3ML (DUONEB) INH SCH ×4 (03:44→20:11)
[2023-07-04 05:27] LABS: VENOUS BASE EXCESS -2.7 (-2.0-2.0); VENOUS HCO3 22.7 MMOL/L (23.0-27.0); VENOUS PARTIAL PRESSURE CO2 41.5 mmHg (38.0-50.0); VENOUS PARTIAL PRESSURE O2 113.2 mmHg (30.0-50.0); VENOUS PH 7.355 UNITS (7.330-7.430); VENOUS STANDARD HCO3 22.2 MMOL/L; VENOUS TOTAL CO2 23.9 MMOL/L (24.0-28.0)
[2023-07-04 05:56] LABS: ABG BASE EXCESS 0.6 (-2.0-2.0); ABG HCO3 25.4 MMOL/L (22.0-26.0); ABG O2 SATURATION 94.1 % (95.0-99.0); ABG PARTIAL PRESSURE CO2 41.3 mmHg (35.0-45.0); ABG PARTIAL PRESSURE O2 69.2 mmHg (75.0-100.0); ABG STANDARD HCO3 24.9 MMOL/L. (22.0-26.0); ABG TOTAL CO2 26.6 MMOL/L (22.0-29.0); ABG pH (ARTERIAL) 7.406 UNITS (7.350-7.450)
[2023-07-04 07:11] LABS: CPK CREATINE PHOSPHOKINASE 4396 U/L (46-171)
[2023-07-04] MEDS: INSULIN LISPRO (NovoLOG) PER UNIT SC SCH ×4 (08:02→20:13)
[2023-07-04 08:22] LABS: HEMATOCRIT 37.9 % (42.0-52.0); HEMOGLOBIN 12.7 g/dl (13.5-17.5); MEAN CORPUSCULAR HEMOGLOBIN 30.5 pg (27.0-33.0); MEAN CORPUSCULAR HGB CONC 33.5 g/dl (32.0-36.5); MEAN CORPUSCULAR VOLUME 91.1 fl (80.0-96.0); PLATELET COUNT, AUTOMATED 246 10^3/uL (150-450); RED BLOOD COUNT 4.16 10^6/uL (4.30-6.10); WHITE BLOOD COUNT 11.6 10^3/uL (4.0-10.0)
[2023-07-04 08:36] LABS: ALBUMIN 2.7 G/DL (3.2-5.2); BLOOD UREA NITROGEN 11 MG/DL (9-23); CALCIUM LEVEL 8.5 MG/DL (8.5-10.1); CARBON DIOXIDE LEVEL 29 MMOL/L (20-31); CHLORIDE LEVEL 104 MMOL/L (98-107); CREATININE FOR GFR 0.85 MG/DL (0.70-1.30); GLOMERULAR FILTRATION RATE > 60.0 (>56); GLUCOSE, FASTING 267 MG/DL (60-100); PHOSPHORUS LEVEL 2.7 MG/DL (2.5-4.9); POTASSIUM SERUM 4.1 MMOL/L (3.5-5.1); SODIUM LEVEL 141 MMOL/L (136-145)
[2023-07-04 08:39] LABS: HEPATITIS B SURFACE ANTIBODY POSITIVE (POSITIVE)
[2023-07-04] MEDS ORDERED: LEVEMIR (INSULIN DETEMIR) 1 UNITS/0.01ML SC SCH (09:00)
[2023-07-04 09:02] LABS: HIV 1&2 SCREEN NEGATIVE (NEGATIVE)
[2023-07-04 09:11] LABS: HEPATITIS B CORE ANTIBODY IGM NEGATIVE (NEGATIVE); HEPATITIS C VIRUS ABY INDEX 0.06 INDEX (<0.8)
[2023-07-04] MEDS: FOLIC ACID 1MG TAB PO SCH (09:14)
[2023-07-04] MEDS: MULTIVITAMINS/MINERALS THERAP 1 TAB PO SCH (09:15)
[2023-07-04] MEDS: ENOXAPARIN 40MG/0.4ML SYRINGE (J1650 PER 10MG) SC SCH (09:15)
[2023-07-04] MEDS: PANTOPRAZOLE 40MG VIAL IV SCH (09:15)
[2023-07-04] MEDS: THIAMINE 100 MG TAB PO SCH ×2 (09:15→20:12)
[2023-07-05] VITALS (12 sets, daily range): BP systolic 113–171; BP diastolic 61–89; TEMP 97.7–100; O2SAT 88–99
[2023-07-05] MEDS: IPRATROPIUM 0.5MG/ALBUTEROL 2.5MG INH SOL UD 3ML (DUONEB) INH SCH ×4 (01:22→21:11)
[2023-07-05] MEDS: PIPERACILLIN/TAZOBACTAM SOD 4.5 GM in D5W MINI-BAG PLUS 50 ML IV SCH ×4 (03:41→20:21)
[2023-07-05 04:39] LABS: HEMATOCRIT 36.7 % (42.0-52.0); HEMOGLOBIN 12.3 g/dl (13.5-17.5); MEAN CORPUSCULAR HEMOGLOBIN 30.4 pg (27.0-33.0); MEAN CORPUSCULAR HGB CONC 33.5 g/dl (32.0-36.5); MEAN CORPUSCULAR VOLUME 90.8 fl (80.0-96.0); PLATELET COUNT, AUTOMATED 205 10^3/uL (150-450); RED BLOOD COUNT 4.04 10^6/uL (4.30-6.10); WHITE BLOOD COUNT 11.2 10^3/uL (4.0-10.0)
[2023-07-05 05:00] LABS: ALBUMIN 2.2 G/DL (3.2-5.2); ALKALINE PHOSPHATASE 68 U/L (46-116); ALT/SGPT 41 U/L (7.0-40); AST/SGOT 139 U/L (<34); BILIRUBIN,TOTAL 0.9 MG/DL (0.3-1.2); BLOOD UREA NITROGEN 7 MG/DL (9-23); CALCIUM LEVEL 8.1 MG/DL (8.5-10.1); CARBON DIOXIDE LEVEL 32 MMOL/L (20-31); CHLORIDE LEVEL 105 MMOL/L (98-107); CREATININE FOR GFR 0.73 MG/DL (0.70-1.30); GLOMERULAR FILTRATION RATE > 60.0 (>56); GLUCOSE, FASTING 136 MG/DL (60-100); POTASSIUM SERUM 3.2 MMOL/L (3.5-5.1); SODIUM LEVEL 143 MMOL/L (136-145); TOTAL PROTEIN 5.1 G/DL (5.7-8.2)
[2023-07-05 05:28] LABS: ABG BASE EXCESS 7.2 (-2.0-2.0); ABG HCO3 31.5 MMOL/L (22.0-26.0); ABG O2 SATURATION 93.2 % (95.0-99.0); ABG PARTIAL PRESSURE CO2 43.5 mmHg (35.0-45.0); ABG PARTIAL PRESSURE O2 63.2 mmHg (75.0-100.0); ABG STANDARD HCO3 30.9 MMOL/L. (22.0-26.0); ABG TOTAL CO2 32.9 MMOL/L (22.0-29.0); ABG pH (ARTERIAL) 7.478 UNITS (7.350-7.450)
[2023-07-05] MEDS: INSULIN LISPRO (NovoLOG) PER UNIT SC SCH ×4 (07:30→17:19)
[2023-07-05] MEDS ORDERED: LEVEMIR (INSULIN DETEMIR) 1 UNITS/0.01ML SC SCH (09:00)
[2023-07-05] MEDS: FOLIC ACID 1MG TAB PO SCH (09:39)
[2023-07-05] MEDS: ENOXAPARIN 40MG/0.4ML SYRINGE (J1650 PER 10MG) SC SCH (09:39)
[2023-07-05] MEDS: THIAMINE 100 MG TAB PO SCH ×2 (09:39→20:20)
[2023-07-05] MEDS: MULTIVITAMINS/MINERALS THERAP 1 TAB PO SCH (09:39)
[2023-07-05] MEDS ORDERED: POTASSIUM CHLORIDE 10% LIQ 20MEQ/15ML UDC PO ONE (11:20)
[2023-07-05] MEDS ORDERED: POTASSIUM CHLORIDE 10MEQ SR TABLET PO ONE ×2 (11:30→18:00)
[2023-07-05] MEDS ORDERED: amLODIPine 5 MG TAB PO ONE (12:00)
[2023-07-05] MEDS: PANTOPRAZOLE 40MG TAB (PROTONIX) PO SCH (12:56)
[2023-07-05] MEDS ORDERED: LEVEMIR (INSULIN DETEMIR) 1 UNITS/0.01ML SC STA (14:58)
[2023-07-05] MEDS: LACTOBACILLUS ACIDOPHILUS CAP (BACID) PO SCH (17:19)
[2023-07-06] MEDS: IPRATROPIUM 0.5MG/ALBUTEROL 2.5MG INH SOL UD 3ML (DUONEB) INH SCH (01:18)
[2023-07-06] MEDS: PIPERACILLIN/TAZOBACTAM SOD 4.5 GM in D5W MINI-BAG PLUS 50 ML IV SCH ×2 (04:16→09:19)
[2023-07-06 05:40] VITALS: BP 154/86; TEMP 98.2; O2SAT 93
[2023-07-06 06:06] LABS: MEAN CORPUSCULAR HEMOGLOBIN 30.7 pg (27.0-33.0); MEAN CORPUSCULAR HGB CONC 34.3 g/dl (32.0-36.5); MEAN CORPUSCULAR VOLUME 89.5 fl (80.0-96.0); PLATELET COUNT, AUTOMATED 224 10^3/uL (150-450); RED BLOOD COUNT 3.91 10^6/uL (4.30-6.10); WHITE BLOOD COUNT 8.3 10^3/uL (4.0-10.0)
[2023-07-06 06:38] LABS: ALBUMIN 2.3 G/DL (3.2-5.2); ALKALINE PHOSPHATASE 69 U/L (46-116); ALT/SGPT 44 U/L (7.0-40); AST/SGOT 131 U/L (<34); BLOOD UREA NITROGEN 6 MG/DL (9-23); CALCIUM LEVEL 8.2 MG/DL (8.5-10.1); CARBON DIOXIDE LEVEL 28 MMOL/L (20-31); CHLORIDE LEVEL 105 MMOL/L (98-107); CREATININE FOR GFR 0.69 MG/DL (0.70-1.30); GLOMERULAR FILTRATION RATE > 60.0 (>56); GLUCOSE, FASTING 80 MG/DL (60-100); POTASSIUM SERUM 3.5 MMOL/L (3.5-5.1); SODIUM LEVEL 140 MMOL/L (136-145); TOTAL PROTEIN 5.3 G/DL (5.7-8.2)
[2023-07-06 06:40] LABS: THYROID STIMULATING HORMONE 1.039 uIU/ML (0.55-4.78)
[2023-07-06] MEDS: INSULIN LISPRO (NovoLOG) PER UNIT SC SCH ×2 (07:30→09:28)
[2023-07-06 08:13] VITALS: BP 145/85; TEMP 96.8; O2SAT 96
[2023-07-06] MEDS ORDERED: amLODIPine 5 MG TAB PO SCH (09:00)
[2023-07-06] MEDS ORDERED: LEVEMIR (INSULIN DETEMIR) 1 UNITS/0.01ML SC SCH (09:00)
[2023-07-06] MEDS: PANTOPRAZOLE 40MG TAB (PROTONIX) PO SCH (09:04)
[2023-07-06] MEDS: MULTIVITAMINS/MINERALS THERAP 1 TAB PO SCH (09:04)
[2023-07-06] MEDS: LACTOBACILLUS ACIDOPHILUS CAP (BACID) PO SCH (09:05)
[2023-07-06] MEDS: FOLIC ACID 1MG TAB PO SCH (09:05)
[2023-07-06 09:09] VITALS: BP 145/85
[2023-07-06] MEDS: ENOXAPARIN 40MG/0.4ML SYRINGE (J1650 PER 10MG) SC SCH (09:10)
[2023-07-06] MEDS ORDERED: INFLUENZA QUADRIVALENT PF VACCINE 0.5ML SYRINGE IM.IMMUN ONE (11:00)
[2023-07-06] MEDS ORDERED: HumuLIN R (REGULAR) INSULIN (NovoLIN R) **100U/ML** PER UNIT SC SCH (12:00)
[2023-07-06] MEDS ORDERED: FOLI1TAB11 PO (12:35)
[2023-07-06] MEDS ORDERED: RISATAB3 PO (12:35)
[2023-07-06] MEDS ORDERED: AMOX875T2 PO (12:35)
[2023-07-06] MEDS ORDERED: VITMTA PO (12:35)
[2023-07-06] MEDS ORDERED: INSUDET SC (12:35)
[2023-07-06] MEDS ORDERED: NOVOINJ3 SC (12:38)
== END 2023-07-06 14:46 | disposition home or self-care (01) | DRG 420 ==
LOC: EDBD 07:24 → M ED 07:24 → M ED INP 10:14 → ENRESERV 11:07 → M ICU 11:46 → M MSPAV 07-05 17:50
PROVIDERS: ADMIT Internal Medicine Pulmonary Disease; ATTEND Internal Medicine
DX: E11.10 Type 2 diabetes mellitus with ketoacidosis without coma (principal); Z79.4 Long term (current) use of insulin; I10 Essential (primary) hypertension; J96.01 Acute respiratory failure with hypoxia; G92.8 Other toxic encephalopathy; J69.0 Pneumonitis due to inhalation of food and vomit; M62.82 Rhabdomyolysis; Z79.899 Other long term (current) drug therapy; F10.20 Alcohol dependence, uncomplicated; E87.5 Hyperkalemia; F14.90 Cocaine use, unspecified, uncomplicated; Z66 Do not resuscitate; E78.00 Pure hypercholesterolemia, unspecified; E07.9 Disorder of thyroid, unspecified; F17.210 Nicotine dependence, cigarettes, uncomplicated; F12.90 Cannabis use, unspecified, uncomplicated; E46 Unspecified protein-calorie malnutrition; R41.82 Altered mental status, unspecified

== ENCOUNTER → 2023-07-13 | Outpatient (REF) | payer OTHER ==
[~2023-07-13] MED LIST changes: +AMOX875T2 PO; +FOLI1TAB11 PO; +INSUDET SC; +NOVOINJ3 SC; +RISATAB3 PO; +VITMTA PO
[2023-07-13 19:01] LABS: ALKALINE PHOSPHATASE 81 U/L (46-116); ALT/SGPT 30 U/L (7.0-40); AST/SGOT 25 U/L (<34); BILIRUBIN,DIRECT < 0.1 MG/DL (<0.4); BILIRUBIN,TOTAL 0.3 MG/DL (0.3-1.2); TOTAL PROTEIN 6.8 G/DL (5.7-8.2)
[2023-07-13 19:34] LABS: HEPATITIS B CORE ANTIBODY IGM NEGATIVE (NEGATIVE); HEPATITIS C VIRUS ABY INDEX 0.04 INDEX (<0.8)
== END ==
LOC: M LAB REF 16:38
PROVIDERS: ATTEND Family Medicine Addiction Medicine
DX: R74.01 Elevation of levels of liver transaminase levels (principal)

== ENCOUNTER → 2023-11-18 | Outpatient (CLI) | payer OTHER ==
[~2023-11-18] MED LIST changes: -ASPI-161 PO; +ASPI-615 PO
== END ==
LOC: M RAD 13:17
PROVIDERS: ATTEND Family Medicine Addiction Medicine
DX: M54.50 Low back pain, unspecified (principal); M47.816 Spondylosis without myelopathy or radiculopathy, lumbar region; M47.817 Spondylosis without myelopathy or radiculopathy, lumbosacral region

== ENCOUNTER → 2024-01-05 | Outpatient (REF) | payer OTHER ==
[2024-01-05 18:27] LABS: C REACTIVE PROTEIN QUANTITATIV < 0.40 MG/DL (<1.0)
[2024-01-05 18:30] LABS: RHEUMATOID FACTOR QUANT 7.2 IU/ML (<14)
== END ==
LOC: M LAB REF 16:47
PROVIDERS: ATTEND Family Medicine Addiction Medicine
DX: M25.50 Pain in unspecified joint (principal)

== ENCOUNTER 2024-02-01 12:08 | Outpatient (RCR) | payer OTHER | END 2024-02-04 | LOC: M PT 12:08 | PROVIDERS: ATTEND Family Medicine Addiction Medicine | DX: M54.50 Low back pain, unspecified (principal) ==

== ENCOUNTER 2024-02-10 12:53 | Outpatient (RCR) | payer OTHER | END 2024-03-05 | LOC: M PT 12:53 | PROVIDERS: ATTEND Family Medicine Addiction Medicine | DX: M54.50 Low back pain, unspecified (principal) ==

== ENCOUNTER → 2024-04-21 | Outpatient (CLI) | payer OTHER | LOC: M PLAIMG 07:53 | PROVIDERS: ATTEND Internal Medicine Cardiovascular Disease | DX: R94.31 Abnormal electrocardiogram [ECG] [EKG] (principal) ==

== ENCOUNTER → 2024-06-09 | Outpatient (REF) ==
[~2024-06-09] MED LIST changes: +GABA-1172 PO; -GABA-282 PO
== END ==
LOC: M PLAIMG 10:23
PROVIDERS: ATTEND Internal Medicine
DX: M54.50 Low back pain, unspecified (principal); M25.562 Pain in left knee

== ENCOUNTER → 2024-06-21 | Outpatient (CLI) | payer OTHER ==
[2024-06-21 16:12] LABS: FREE T3 3.1 PG/ML (2.3-4.2); THYROID STIMULATING HORMONE 0.692 uIU/ML (0.55-4.78)
[2024-06-21 16:13] LABS: FREE T4 1.24 NG/DL (0.89-1.76)
== END ==
LOC: M LAB 14:38
PROVIDERS: ATTEND Ophthalmology
DX: H05.20 Unspecified exophthalmos (principal)

== ENCOUNTER → 2024-11-27 | Outpatient (CLI) | payer OTHER | LOC: M RAD 14:58 | PROVIDERS: ATTEND Family Medicine Addiction Medicine | DX: M54.50 Low back pain, unspecified (principal) ==

== ENCOUNTER 2025-05-12 21:44 | Inpatient (IN) | payer OTHER ==
[~2025-05-12] VITALS: Ht 172.7 cm; Wt 57.0 kg
[~2025-05-12 21:44] MED LIST changes: +BASA100I INJ; +DULO1CAP5 PO; +LANTINJ4 SC; +PANT40TA29 PO; -PRAV40TA2 PO; +PRAV40TA85 PO; +ROSU10TA61 PO; +SUCR1SS PO
[2025-05-12 22:20] LABS: BASO # 0.0 10^3/uL (0.0-0.2); BASO % 0.3 % (0.0-1.0); EOS # 0.0 10^3/uL (0.0-0.5); EOS % 0.0 % (0.0-3.0); LYMPH # 0.8 10^3/uL (1.5-5.0); LYMPH % 6.6 % (24.0-44.0); MONO # 0.4 10^3/uL (0.0-0.8); MONO % 3.7 % (2.0-8.0); NEUTROPHILS # 10.2 10^3/uL (1.5-8.5); NEUTROPHILS % 88.9 % (36.0-66.0); PLATELET COUNT, AUTOMATED 326 10^3/uL (150-450)
[2025-05-12 23:09] LABS: ALT/SGPT 25 U/L (7.0-40); AST/SGOT 39 U/L (<34); CALCIUM LEVEL 11.3 MG/DL (8.5-10.1); CARBON DIOXIDE LEVEL 17 MMOL/L (20-31); CHLORIDE LEVEL 94 MMOL/L (98-107); CREATININE FOR GFR 1.07 MG/DL (0.70-1.30); GLOMERULAR FILTRATION RATE 81.4 (>56); POTASSIUM SERUM 6.2 MMOL/L (3.5-5.1); SODIUM LEVEL 138 MMOL/L (136-145)
[2025-05-12] MEDS ORDERED: INSULIN IV RATE CHANGE DOCUMENTATION ML/HR XX SCH (23:45)
[2025-05-12 23:48] LABS: OSMOLALITY SERUM 350 MOSM/KG (275-295)
[2025-05-12] MEDS: NS (Normal Saline) 0.9% 1,000 ML IV ONE (23:52)
[2025-05-12 23:54] LABS: VENOUS BASE EXCESS -8.3 (-2.0-2.0); VENOUS HCO3 16.2 MMOL/L (23.0-27.0); VENOUS O2 SATURATION 97.0 % (60.0-80.0); VENOUS PARTIAL PRESSURE CO2 31.2 mmHg (38.0-50.0); VENOUS PARTIAL PRESSURE O2 93.3 mmHg (30.0-50.0); VENOUS PH 7.333 UNITS (7.330-7.430); VENOUS STANDARD HCO3 17.9 MMOL/L; VENOUS TOTAL CO2 17.1 MMOL/L (24.0-28.0)
[2025-05-13] VITALS (12 sets, daily range): BP systolic 116–170; BP diastolic 67–100; TEMP 97.9–99; O2SAT 88–100
[2025-05-13 00:16] LABS: ACETONE/KETONE > 4.50 MMOL/L (0.02-0.27)
[2025-05-13] MEDS: HumuLIN R (REGULAR) INSULIN (NovoLIN R) **100 U/ML** PER UNIT IV ONE (00:19)
[2025-05-13] MEDS: INSULIN REGULAR IN 0.9 % NACL 100 UNIT in IV 1 EA IV SCH ×2 (00:26→07:20)
[2025-05-13 01:08] LABS: ETHYL ALCOHOL (ETHANOL) 0.003 % (0.000-0.010)
[2025-05-13] MEDS ORDERED: INSULIN REGULAR IN 0.9 % NACL 100 UNIT in IV 1 EA IV SCH (01:10)
[2025-05-13] MEDS ORDERED: NS (Normal Saline) 0.9% 1,000 ML IV ONE (01:10)
[2025-05-13] MEDS: THIAMINE 100 MG TAB PO SCH (02:11)
[2025-05-13] MEDS: INSULIN IV RATE CHANGE DOCUMENTATION ML/HR XX SCH ×2 (03:04→07:45)
[2025-05-13] MEDS: NS (Normal Saline) 0.9% 1,000 ML IV SCH (03:05)
[2025-05-13 03:14] LABS: VENOUS BASE EXCESS -6.9 (-2.0-2.0); VENOUS HCO3 20.3 MMOL/L (23.0-27.0); VENOUS O2 SATURATION 92.5 % (60.0-80.0); VENOUS PARTIAL PRESSURE CO2 46.2 mmHg (38.0-50.0); VENOUS PARTIAL PRESSURE O2 72.7 mmHg (30.0-50.0); VENOUS PH 7.260 UNITS (7.330-7.430); VENOUS STANDARD HCO3 18.9 MMOL/L; VENOUS TOTAL CO2 21.7 MMOL/L (24.0-28.0)
[2025-05-13 04:02] LABS: OSMOLALITY SERUM 355.0 MOSM/KG (275-295)
[2025-05-13 04:07] LABS: CALCIUM LEVEL 10.9 MG/DL (8.5-10.1); CARBON DIOXIDE LEVEL 20.0 MMOL/L (20-31); CHLORIDE LEVEL 100.0 MMOL/L (98-107); CREATININE FOR GFR 1.1 MG/DL (0.70-1.30); GLOMERULAR FILTRATION RATE 78.8 (>56); MAGNESIUM LEVEL 2.6 MG/DL (1.8-2.4); PHOSPHORUS LEVEL 2.7 MG/DL (2.5-4.9); POTASSIUM SERUM 4.7 MMOL/L (3.5-5.1); SODIUM LEVEL 142.0 MMOL/L (136-145)
[2025-05-13 05:12] LABS: VENOUS BASE EXCESS -3.3 (-2.0-2.0); VENOUS HCO3 22.7 MMOL/L (23.0-27.0); VENOUS O2 SATURATION 91.9 % (60.0-80.0); VENOUS PARTIAL PRESSURE CO2 44.0 mmHg (38.0-50.0); VENOUS PARTIAL PRESSURE O2 65.7 mmHg (30.0-50.0); VENOUS PH 7.331 UNITS (7.330-7.430); VENOUS STANDARD HCO3 21.7 MMOL/L; VENOUS TOTAL CO2 24.1 MMOL/L (24.0-28.0)
[2025-05-13 05:42] LABS: OSMOLALITY SERUM 333.0 MOSM/KG (275-295)
[2025-05-13 05:48] LABS: CALCIUM LEVEL 10.8 MG/DL (8.5-10.1); CARBON DIOXIDE LEVEL 25.0 MMOL/L (20-31); CHLORIDE LEVEL 104.0 MMOL/L (98-107); CREATININE FOR GFR 1.06 MG/DL (0.70-1.30); GLOMERULAR FILTRATION RATE 82.4 (>56); MAGNESIUM LEVEL 2.5 MG/DL (1.8-2.4); PHOSPHORUS LEVEL 1.9 MG/DL (2.5-4.9); POTASSIUM SERUM 4.8 MMOL/L (3.5-5.1); SODIUM LEVEL 144.0 MMOL/L (136-145)
[2025-05-13] MEDS: KCL 10MEQ/100ML SWI (KRUN) 10 MEQ in IV 1 EA IV SCH (06:53)
[2025-05-13 07:26] LABS: VENOUS BASE EXCESS 0.7 (-2.0-2.0); VENOUS HCO3 25.1 MMOL/L (23.0-27.0); VENOUS O2 SATURATION 99.6 % (60.0-80.0); VENOUS PARTIAL PRESSURE CO2 39.7 mmHg (38.0-50.0); VENOUS PARTIAL PRESSURE O2 245.8 mmHg (30.0-50.0); VENOUS PH 7.419 UNITS (7.330-7.430); VENOUS STANDARD HCO3 25.2 MMOL/L; VENOUS TOTAL CO2 26.3 MMOL/L (24.0-28.0)
[2025-05-13] MEDS: KCL 20MEQ IN D5/0.45NS 1000ML 1,000 ML IV SCH (07:47)
[2025-05-13 07:57] LABS: OSMOLALITY SERUM 324 MOSM/KG (275-295)
[2025-05-13 08:00] LABS: CALCIUM LEVEL 10.6 MG/DL (8.5-10.1); CARBON DIOXIDE LEVEL 25 MMOL/L (20-31); CHLORIDE LEVEL 107 MMOL/L (98-107); CREATININE FOR GFR 0.98 MG/DL (0.70-1.30); GLOMERULAR FILTRATION RATE > 90.0 (>56); MAGNESIUM LEVEL 2.6 MG/DL (1.8-2.4); PHOSPHORUS LEVEL 1.2 MG/DL (2.5-4.9); POTASSIUM SERUM 5.0 MMOL/L (3.5-5.1); SODIUM LEVEL 145 MMOL/L (136-145)
[2025-05-13] MEDS: HEPARIN SOD 5000 UNITS/ML 1 ML VIAL/SYRINGE SC SCH (09:05)
[2025-05-13] MEDS: MULTIVITAMINS/MINERALS THERAP 1 TAB PO SCH (09:05)
[2025-05-13] MEDS: PANTOPRAZOLE 40MG VIAL IV SCH (09:05)
[2025-05-13] MEDS: FOLIC ACID 1 MG TAB PO SCH (09:06)
[2025-05-13 09:08] LABS: KETONE, URINE AUTO RFX 2+ mg/dL (NEGATIVE); LEUKOCYTE ESTERASE UR AUTO RFX NEGATIVE (NEGATIVE); NITRITE, URINE AUTO RFX NEGATIVE (NEGATIVE); RBC, URINE AUTO RFX 1 /HPF (0-3); SQUAM EPITHELIAL CELL UR AURFX 0 /HPF (0-6); WBC, URINE AUTO RFX 0 /HPF (0-3)
[2025-05-13] MEDS: SODIUM PHOSPHATE INJ 20 MMOL in D5W 250 ML IV ONE (11:04)
[2025-05-13 12:16] LABS: PLATELET COUNT, AUTOMATED 285 10^3/uL (150-450)
[2025-05-13] MEDS ORDERED: GLUCOSE 4 GM CHEW PO PRN (12:45)
[2025-05-13] MEDS ORDERED: DEXTROSE 50% 50 ML SYRINGE IV PRN (12:45)
[2025-05-13] MEDS ORDERED: GLUCAGON INJ 1 MG VIAL SC PRN (12:45)
[2025-05-13 12:49] LABS: ALT/SGPT 17 U/L (7.0-40); AST/SGOT 18 U/L (<34); CALCIUM LEVEL 10.0 MG/DL (8.5-10.1); CARBON DIOXIDE LEVEL 27 MMOL/L (20-31); CHLORIDE LEVEL 108 MMOL/L (98-107); CREATININE FOR GFR 0.83 MG/DL (0.70-1.30); GLOMERULAR FILTRATION RATE > 90.0 (>56); POTASSIUM SERUM 3.9 MMOL/L (3.5-5.1); SODIUM LEVEL 146 MMOL/L (136-145)
[2025-05-13] MEDS: INSULIN LISPRO (NovoLOG) PER UNIT SC SCH ×3 (13:29→20:05)
[2025-05-13 16:50] LABS: PHOSPHORUS LEVEL 3.3 MG/DL (2.5-4.9)
[2025-05-13] MEDS: amLODIPine 10 MG TAB PO SCH (17:00)
[2025-05-13] MEDS: ROSUVASTATIN 10 MG TAB PO SCH (17:00)
[2025-05-13] MEDS: NICOTINE 21 MG/24 HR 1 EA TRANSDERMAL TD SCH (17:00)
[2025-05-13 17:13] LABS: FREE T4 1.54 NG/DL (0.89-1.76)
[2025-05-13] MEDS ORDERED: INSULIN LISPRO (NovoLOG) PER UNIT SC SCH ×2 (17:30)
[2025-05-13] MEDS: LanTUS (INSULIN GLARGINE INJ) 1 UNITS/0.01 ML SC SCH (20:05)
[2025-05-13] MEDS ORDERED: LanTUS (INSULIN GLARGINE INJ) 1 UNITS/0.01 ML SC SCH (21:00)
[2025-05-14] VITALS: BP 111/71; TEMP 98.3; O2SAT 99
[2025-05-14 04:00] VITALS: BP 174/97; TEMP 98.3; O2SAT 99
[2025-05-14 04:43] VITALS: BP 124/78
[2025-05-14 05:38] LABS: PLATELET COUNT, AUTOMATED 286 10^3/uL (150-450)
[2025-05-14 06:02] LABS: ALT/SGPT 22 U/L (7.0-40); AST/SGOT 23 U/L (<34); CALCIUM LEVEL 9.6 MG/DL (8.5-10.1); CARBON DIOXIDE LEVEL 28 MMOL/L (20-31); CHLORIDE LEVEL 106 MMOL/L (98-107); CREATININE FOR GFR 0.76 MG/DL (0.70-1.30); GLOMERULAR FILTRATION RATE > 90.0 (>56); MAGNESIUM LEVEL 2.2 MG/DL (1.8-2.4); PHOSPHORUS LEVEL 3.2 MG/DL (2.5-4.9); POTASSIUM SERUM 3.8 MMOL/L (3.5-5.1); SODIUM LEVEL 145 MMOL/L (136-145)
[2025-05-14 07:25] VITALS: O2SAT 100
[2025-05-14 08:00] VITALS: BP 130/78; TEMP 98.1; O2SAT 100
[2025-05-14 08:13] VITALS: BP 130/78
[2025-05-14] MEDS ORDERED: LANTINJ4 SUBQ (09:10)
[2025-05-14] MEDS ORDERED: SUCR1TAB56 PO (09:10)
[2025-05-14] MEDS ORDERED: HOME MED LIST COMPLETE! XX SCH (09:10)
[2025-05-14] MEDS ORDERED: PANT-23 PO (09:10)
[2025-05-14] MEDS: LanTUS (INSULIN GLARGINE INJ) 1 UNITS/0.01 ML SC ONE (10:02)
== END 2025-05-14 12:00 | disposition home or self-care (01) | DRG 420 ==
LOC: M ED 21:44 → M ED INP 05-13 01:06 → M ICU 05-13 02:57
PROVIDERS: ADMIT Student in an Organized Health Care Education/Training Program; ATTEND Internal Medicine
DX: E11.10 Type 2 diabetes mellitus with ketoacidosis without coma (principal); E87.5 Hyperkalemia; E87.0 Hyperosmolality and hypernatremia; F17.210 Nicotine dependence, cigarettes, uncomplicated; D72.829 Elevated white blood cell count, unspecified; E83.39 Other disorders of phosphorus metabolism; E78.3 Hyperchylomicronemia; F10.10 Alcohol abuse, uncomplicated; I10 Essential (primary) hypertension; Z91.148 Patient's other noncompliance with medication regimen for other reason; R00.0 Tachycardia, unspecified; E11.65 Type 2 diabetes mellitus with hyperglycemia; F12.90 Cannabis use, unspecified, uncomplicated; E78.00 Pure hypercholesterolemia, unspecified; E07.9 Disorder of thyroid, unspecified; Z79.899 Other long term (current) drug therapy; Z79.4 Long term (current) use of insulin

== ENCOUNTER 2025-05-27 20:30 | Inpatient (IN) | payer MEDICAID, OTHER ==
[~2025-05-27] VITALS: Ht 172.7 cm; Wt 59.5 kg
[~2025-05-27 20:30] MED LIST changes: +LANTINJ4 SUBQ; +PANT-23 PO; +SUCR1TAB56 PO
[2025-05-27 21:19] LABS: BASO # 0.1 10^3/uL (0.0-0.2); BASO % 0.4 % (0.0-1.0); EOS # 0.0 10^3/uL (0.0-0.5); EOS % 0.0 % (0.0-3.0); LYMPH # 0.5 10^3/uL (1.5-5.0); LYMPH % 3.0 % (24.0-44.0); MONO # 0.5 10^3/uL (0.0-0.8); MONO % 2.9 % (2.0-8.0); NEUTROPHILS # 15.7 10^3/uL (1.5-8.5); NEUTROPHILS % 93.3 % (36.0-66.0); PLATELET COUNT, AUTOMATED 357 10^3/uL (150-450)
[2025-05-27 21:40] LABS: ALT/SGPT 29 U/L (7.0-40); AST/SGOT 33 U/L (<34); CALCIUM LEVEL 9.5 MG/DL (8.5-10.1); CARBON DIOXIDE LEVEL < 10.0 MMOL/L (20-31); CHLORIDE LEVEL 96 MMOL/L (98-107); CREATININE FOR GFR 1.14 MG/DL (0.70-1.30); GLOMERULAR FILTRATION RATE 75.5 (>56); POTASSIUM SERUM 6.1 MMOL/L (3.5-5.1); SODIUM LEVEL 133 MMOL/L (136-145)
[2025-05-27] MEDS ORDERED: ISOVUE-370 76% 100 ML VIAL As Ordered ONE (21:51)
[2025-05-27] MEDS: HumuLIN R (REGULAR) INSULIN (NovoLIN R) **100 U/ML** PER UNIT IV ONE (21:57)
[2025-05-27] MEDS: NS (Normal Saline) 0.9% 1,000 ML IV ONE (21:58)
[2025-05-27 22:05] LABS: ETHYL ALCOHOL (ETHANOL) < 0.003 % (0.000-0.010)
[2025-05-27] MEDS: NS (Normal Saline) 0.9% 1,800 ML in IV 1 EA IV ONE (22:27)
[2025-05-27 22:34] LABS: ACETONE/KETONE > 4.50 MMOL/L (0.02-0.27)
[2025-05-27] MEDS: CALCIUM GLUCONATE 1,000 MG in DEXTROSE 5% (D5W) MINI-BAG PLU 100 ML IV ONE (23:21)
[2025-05-27 23:37] LABS: VENOUS BASE EXCESS -20.2 (-2.0-2.0); VENOUS HCO3 7.5 MMOL/L (23.0-27.0); VENOUS O2 SATURATION 96.2 % (60.0-80.0); VENOUS PARTIAL PRESSURE CO2 23.4 mmHg (38.0-50.0); VENOUS PARTIAL PRESSURE O2 101.8 mmHg (30.0-50.0); VENOUS PH 7.122 UNITS (7.330-7.430); VENOUS STANDARD HCO3 9.8 MMOL/L; VENOUS TOTAL CO2 8.2 MMOL/L (24.0-28.0)
[2025-05-28] VITALS (17 sets, daily range): BP systolic 99–173; BP diastolic 57–86; TEMP 97.7–98.4; O2SAT 87–99
[2025-05-28] MEDS: SODIUM BICARBONATE 8.4% INJ 50ML SYRINGE IV STA
[2025-05-28 00:13] LABS: CALCIUM LEVEL 7.9 MG/DL (8.5-10.1); CARBON DIOXIDE LEVEL < 10.0 MMOL/L (20-31); CHLORIDE LEVEL 104 MMOL/L (98-107); CREATININE FOR GFR 1.14 MG/DL (0.70-1.30); GLOMERULAR FILTRATION RATE 75.5 (>56); POTASSIUM SERUM 4.1 MMOL/L (3.5-5.1); SODIUM LEVEL 137 MMOL/L (136-145)
[2025-05-28] MEDS ORDERED: MAALOX 30 ML SUSP *UDC PO PRN (00:35)
[2025-05-28] MEDS ORDERED: ACETAMINOPHEN 325 MG TAB PO PRN (00:35)
[2025-05-28] MEDS ORDERED: MOM 30 ML SUSPENSION UDC PO PRN (00:35)
[2025-05-28] MEDS ORDERED: KCL 10MEQ/100ML SWI (KRUN) 10 MEQ, SODIUM BICARBONATE 50 MEQ in IV 1 EA IV ONE (01:00)
[2025-05-28 01:09] LABS: BARBITURATES URINE NEGATIVE (NEGATIVE); BENZODIAZEPINES URINE NEGATIVE (NEGATIVE); METHADONE URINE NEGATIVE (NEGATIVE); OPIATES URINE NEGATIVE (NEGATIVE); PHENCYCLIDINE URINE NEGATIVE (NEGATIVE)
[2025-05-28 01:10] LABS: CANNABINOIDS URINE NEGATIVE (NEGATIVE)
[2025-05-28] MEDS: NS (Normal Saline) 0.9% 1,000 ML IV SCH (01:16)
[2025-05-28] MEDS: INSULIN REGULAR IN 0.9 % NACL 100 UNIT in IV 1 EA IV SCH (01:20)
[2025-05-28 01:24] LABS: AMPHETAMINES LEVEL URINE POSITIVE (NEGATIVE); COCAINE METABOLITE URINE POSITIVE (NEGATIVE)
[2025-05-28 02:00] LABS: VENOUS BASE EXCESS -16.9 (-2.0-2.0); VENOUS HCO3 8.7 MMOL/L (23.0-27.0); VENOUS O2 SATURATION 97.6 % (60.0-80.0); VENOUS PARTIAL PRESSURE CO2 21.9 mmHg (38.0-50.0); VENOUS PARTIAL PRESSURE O2 107.9 mmHg (30.0-50.0); VENOUS PH 7.218 UNITS (7.330-7.430); VENOUS STANDARD HCO3 12.0 MMOL/L; VENOUS TOTAL CO2 9.4 MMOL/L (24.0-28.0)
[2025-05-28] MEDS ORDERED: NS 0.45% IV ONE (02:00)
[2025-05-28] MEDS ORDERED: SODIUM BICARBONATE IV ONE (02:00)
[2025-05-28] MEDS ORDERED: POTASSIUM CHLORIDE IV ONE (02:00)
[2025-05-28 03:21] LABS: CALCIUM LEVEL 8.6 MG/DL (8.5-10.1); CARBON DIOXIDE LEVEL < 10.0 MMOL/L (20-31); CHLORIDE LEVEL 103 MMOL/L (98-107); CREATININE FOR GFR 1.11 MG/DL (0.70-1.30); GLOMERULAR FILTRATION RATE 77.9 (>56); MAGNESIUM LEVEL 2.4 MG/DL (1.8-2.4); POTASSIUM SERUM 5.1 MMOL/L (3.5-5.1); SODIUM LEVEL 140 MMOL/L (136-145)
[2025-05-28] MEDS: KCL 20MEQ IN 0.45NS 1000ML 1,000 ML IV SCH (03:22)
[2025-05-28 03:53] LABS: VENOUS BASE EXCESS -12.6 (-2.0-2.0); VENOUS HCO3 13.5 MMOL/L (23.0-27.0); VENOUS O2 SATURATION 98.1 % (60.0-80.0); VENOUS PARTIAL PRESSURE CO2 32.4 mmHg (38.0-50.0); VENOUS PARTIAL PRESSURE O2 116.5 mmHg (30.0-50.0); VENOUS PH 7.239 UNITS (7.330-7.430); VENOUS STANDARD HCO3 14.8 MMOL/L; VENOUS TOTAL CO2 14.5 MMOL/L (24.0-28.0)
[2025-05-28 04:22] LABS: CALCIUM LEVEL 8.3 MG/DL (8.5-10.1); CARBON DIOXIDE LEVEL 13.0 MMOL/L (20-31); CHLORIDE LEVEL 107.0 MMOL/L (98-107); CREATININE FOR GFR 1.11 MG/DL (0.70-1.30); GLOMERULAR FILTRATION RATE 77.9 (>56); MAGNESIUM LEVEL 2.3 MG/DL (1.8-2.4); POTASSIUM SERUM 4.6 MMOL/L (3.5-5.1); SODIUM LEVEL 142.0 MMOL/L (136-145)
[2025-05-28] MEDS: KCL 10MEQ IN D5/0.45NS 1000ML 1,000 ML IV SCH (05:44)
[2025-05-28 06:20] LABS: VENOUS BASE EXCESS -10.8 (-2.0-2.0); VENOUS HCO3 15.3 MMOL/L (23.0-27.0); VENOUS O2 SATURATION 94.0 % (60.0-80.0); VENOUS PARTIAL PRESSURE CO2 34.9 mmHg (38.0-50.0); VENOUS PARTIAL PRESSURE O2 74.6 mmHg (30.0-50.0); VENOUS PH 7.259 UNITS (7.330-7.430); VENOUS STANDARD HCO3 15.9 MMOL/L; VENOUS TOTAL CO2 16.3 MMOL/L (24.0-28.0)
[2025-05-28 06:50] LABS: CALCIUM LEVEL 8.7 MG/DL (8.5-10.1); CARBON DIOXIDE LEVEL 19.0 MMOL/L (20-31); CHLORIDE LEVEL 109.0 MMOL/L (98-107); CREATININE FOR GFR 1.05 MG/DL (0.70-1.30); GLOMERULAR FILTRATION RATE 83.3 (>56); MAGNESIUM LEVEL 2.2 MG/DL (1.8-2.4); POTASSIUM SERUM 3.9 MMOL/L (3.5-5.1); SODIUM LEVEL 145.0 MMOL/L (136-145)
[2025-05-28] MEDS: INSULIN IV RATE CHANGE DOCUMENTATION ML/HR XX SCH (08:04)
[2025-05-28] MEDS: DOCUSATE SODIUM 100 MG CAPSULE PO SCH (09:00)
[2025-05-28 09:16] LABS: VENOUS BASE EXCESS -6.6 (-2.0-2.0); VENOUS HCO3 19.5 MMOL/L (23.0-27.0); VENOUS O2 SATURATION 98.8 % (60.0-80.0); VENOUS PARTIAL PRESSURE CO2 41.2 mmHg (38.0-50.0); VENOUS PARTIAL PRESSURE O2 192.0 mmHg (30.0-50.0); VENOUS PH 7.294 UNITS (7.330-7.430); VENOUS STANDARD HCO3 19.2 MMOL/L; VENOUS TOTAL CO2 20.8 MMOL/L (24.0-28.0)
[2025-05-28] MEDS ORDERED: ASPI81TA26 PO (09:21)
[2025-05-28] MEDS ORDERED: BASA100I SUBQ (09:21)
[2025-05-28] MEDS ORDERED: INSU100V3 SUBQ (09:21)
[2025-05-28] MEDS ORDERED: MELO15TA28 PO (09:21)
[2025-05-28] MEDS ORDERED: HOME MED LIST COMPLETE! XX SCH (09:25)
[2025-05-28 09:41] LABS: CALCIUM LEVEL 7.8 MG/DL (8.5-10.1); CARBON DIOXIDE LEVEL 20 MMOL/L (20-31); CHLORIDE LEVEL 113 MMOL/L (98-107); CREATININE FOR GFR 0.87 MG/DL (0.70-1.30); GLOMERULAR FILTRATION RATE > 90.0 (>56); MAGNESIUM LEVEL 2.1 MG/DL (1.8-2.4); PHOSPHORUS LEVEL 2.5 MG/DL (2.5-4.9); POTASSIUM SERUM 4.0 MMOL/L (3.5-5.1); SODIUM LEVEL 145 MMOL/L (136-145)
[2025-05-28] MEDS: PANTOPRAZOLE 40MG VIAL IV SCH (10:00)
[2025-05-28] MEDS: HEPARIN SOD 5000 UNITS/ML 1 ML VIAL/SYRINGE SC SCH (10:04)
[2025-05-28 13:24] LABS: CALCIUM LEVEL 8.4 MG/DL (8.5-10.1); CARBON DIOXIDE LEVEL 22 MMOL/L (20-31); CHLORIDE LEVEL 112 MMOL/L (98-107); CREATININE FOR GFR 0.86 MG/DL (0.70-1.30); GLOMERULAR FILTRATION RATE > 90.0 (>56); PHOSPHORUS LEVEL 2.6 MG/DL (2.5-4.9); POTASSIUM SERUM 4.0 MMOL/L (3.5-5.1); SODIUM LEVEL 146 MMOL/L (136-145)
[2025-05-28] MEDS: LanTUS (INSULIN GLARGINE INJ) 1 UNITS/0.01 ML SC ONE (13:54)
[2025-05-28] MEDS ORDERED: DEXTROSE 50% 50 ML SYRINGE IV PRN (15:20)
[2025-05-28] MEDS ORDERED: GLUCOSE 4 GM CHEW PO PRN (15:20)
[2025-05-28] MEDS ORDERED: GLUCAGON INJ 1 MG VIAL SC PRN (15:20)
[2025-05-28 15:33] LABS: BASO # 0.1 10^3/uL (0.0-0.2); BASO % 0.4 % (0.0-1.0); EOS # 0.0 10^3/uL (0.0-0.5); EOS % 0.0 % (0.0-3.0); LYMPH # 1.3 10^3/uL (1.5-5.0); LYMPH % 9.8 % (24.0-44.0); MONO # 1.0 10^3/uL (0.0-0.8); MONO % 7.7 % (2.0-8.0); NEUTROPHILS # 10.9 10^3/uL (1.5-8.5); NEUTROPHILS % 81.7 % (36.0-66.0); PLATELET COUNT, AUTOMATED 344 10^3/uL (150-450)
[2025-05-28 15:47] LABS: APPEARANCE, URINE CLEAR (CLEAR); BACTERIA, URINE AUTO NEGATIVE (NEGATIVE); BILIRUBIN, URINE AUTO NEGATIVE (NEGATIVE); BLOOD, URINE BLOOD NEGATIVE (NEGATIVE); GLUCOSE, URINE (UA) AUTO 3+ mg/dL (NEGATIVE); KETONE, URINE AUTO 1+ mg/dL (NEGATIVE); LEUKOCYTE ESTERASE, URINE AUTO NEGATIVE (NEGATIVE); NITRITE, URINE AUTO NEGATIVE (NEGATIVE); PROTEIN, URINE AUTO NEGATIVE (NEGATIVE); RBC, URINE AUTO 0 /HPF (0-3); SPECIFIC GRAVITY URINE AUTO 1.022 (1.002-1.035); SQUAMOUS EPITHELIAL CELL UR AU 0 /HPF (0-6); UROBILINOGEN, URINE AUTO 0.2 mg/dL (0.0-2.0); WBC, URINE AUTO 0 /HPF (0-3)
[2025-05-28 16:00] LABS: CALCIUM LEVEL 8.3 MG/DL (8.5-10.1); CARBON DIOXIDE LEVEL 21 MMOL/L (20-31); CHLORIDE LEVEL 110 MMOL/L (98-107); CREATININE FOR GFR 0.83 MG/DL (0.70-1.30); GLOMERULAR FILTRATION RATE > 90.0 (>56); PHOSPHORUS LEVEL 3.1 MG/DL (2.5-4.9); POTASSIUM SERUM 4.1 MMOL/L (3.5-5.1); SODIUM LEVEL 144 MMOL/L (136-145)
[2025-05-28] MEDS: INSULIN LISPRO (NovoLOG) PER UNIT SC SCH ×2 (17:37→20:15)
[2025-05-28] MEDS: SUCRALFATE 1 GM TAB PO SCH (17:37)
[2025-05-28] MEDS: MULTIVITAMINS/MINERALS THERAP 1 TAB PO SCH (18:55)
[2025-05-28] MEDS: FOLIC ACID 1 MG TAB PO SCH (18:55)
[2025-05-28] MEDS: amLODIPine 10 MG TAB PO SCH (18:56)
[2025-05-28] MEDS: THIAMINE 100 MG TAB PO SCH (20:15)
[2025-05-28 20:43] LABS: CALCIUM LEVEL 8.0 MG/DL (8.5-10.1); CARBON DIOXIDE LEVEL 23 MMOL/L (20-31); CHLORIDE LEVEL 105 MMOL/L (98-107); CREATININE FOR GFR 0.84 MG/DL (0.70-1.30); GLOMERULAR FILTRATION RATE > 90.0 (>56); POTASSIUM SERUM 4.3 MMOL/L (3.5-5.1); SODIUM LEVEL 136 MMOL/L (136-145)
[2025-05-28] MEDS ORDERED: LanTUS (INSULIN GLARGINE INJ) 1 UNITS/0.01 ML SC SCH (21:00)
[2025-05-28] MEDS ORDERED: INSULIN LISPRO (NovoLOG) PER UNIT SC SCH (21:00)
[2025-05-29] VITALS (9 sets, daily range): BP systolic 108–133; BP diastolic 65–81; TEMP 97.4–98.6; O2SAT 92–99
[2025-05-29 07:40] LABS: BASO # 0.0 10^3/uL (0.0-0.2); BASO % 0.6 % (0.0-1.0); EOS # 0.0 10^3/uL (0.0-0.5); EOS % 0.2 % (0.0-3.0); LYMPH # 1.7 10^3/uL (1.5-5.0); LYMPH % 27.0 % (24.0-44.0); MONO # 0.6 10^3/uL (0.0-0.8); MONO % 10.0 % (2.0-8.0); NEUTROPHILS # 4.0 10^3/uL (1.5-8.5); NEUTROPHILS % 62.0 % (36.0-66.0); PLATELET COUNT, AUTOMATED 305 10^3/uL (150-450)
[2025-05-29 07:58] LABS: OSMOLALITY SERUM 306.0 MOSM/KG (275-295)
[2025-05-29 07:59] LABS: MAGNESIUM LEVEL 2.0 MG/DL (1.8-2.4); PHOSPHORUS LEVEL 2.7 MG/DL (2.5-4.9)
[2025-05-29 08:00] LABS: ALT/SGPT 23 U/L (7.0-40); AST/SGOT 24 U/L (<34); CALCIUM LEVEL 8.2 MG/DL (8.5-10.1); CARBON DIOXIDE LEVEL 27 MMOL/L (20-31); CHLORIDE LEVEL 105 MMOL/L (98-107); CREATININE FOR GFR 0.69 MG/DL (0.70-1.30); GLOMERULAR FILTRATION RATE > 90.0 (>56); POTASSIUM SERUM 3.9 MMOL/L (3.5-5.1); SODIUM LEVEL 136 MMOL/L (136-145)
[2025-05-29 08:03] LABS: THYROGLOBULIN ANTIBODY 26.0 U/ML (<60.0); THYROID PEROXIDASE ANTIBODY 48.0 U/ML (<60.0)
[2025-05-29] MEDS: LanTUS (INSULIN GLARGINE INJ) 1 UNITS/0.01 ML SC SCH (08:52)
[2025-05-29] MEDS: INSULIN LISPRO (NovoLOG) PER UNIT SC SCH (08:52)
[2025-05-29] MEDS: PANTOPRAZOLE 40MG TAB PO SCH (08:53)
[2025-05-29] MEDS: ASPIRIN 81 MG ENTERIC TABLET PO SCH (08:53)
[2025-05-29] MEDS: ROSUVASTATIN 10 MG TAB PO SCH (08:54)
== END 2025-05-29 15:34 | disposition home or self-care (01) | DRG 420 ==
LOC: M ED 20:30 → M ED INP 05-28 00:31 → M ICU 05-28 02:00 → M PCU 05-28 23:30
PROVIDERS: ADMIT Student in an Organized Health Care Education/Training Program; ATTEND Internal Medicine
DX: E10.11 Type 1 diabetes mellitus with ketoacidosis with coma (principal); E87.5 Hyperkalemia; I10 Essential (primary) hypertension; D72.829 Elevated white blood cell count, unspecified; F39 Unspecified mood [affective] disorder; E05.80 Other thyrotoxicosis without thyrotoxic crisis or storm; Z79.4 Long term (current) use of insulin; Z91.148 Patient's other noncompliance with medication regimen for other reason; F10.10 Alcohol abuse, uncomplicated; E78.00 Pure hypercholesterolemia, unspecified; F17.210 Nicotine dependence, cigarettes, uncomplicated; F12.90 Cannabis use, unspecified, uncomplicated; Z79.899 Other long term (current) drug therapy; K21.9 Gastro-esophageal reflux disease without esophagitis

== ENCOUNTER 2025-06-16 08:56 | Emergency (ER) | payer MEDICAID, OTHER ==
[~2025-06-16] VITALS: Ht 172.7 cm; Wt 60.7 kg
[~2025-06-16 08:56] MED LIST changes: +BASA100I SUBQ; +INSU100V3 SUBQ; +MELO15TA28 PO
[2025-06-16 09:21] LABS: VENOUS BASE EXCESS 0.3 (-2.0-2.0); VENOUS HCO3 24.0 MMOL/L (23.0-27.0); VENOUS O2 SATURATION 87.5 % (60.0-80.0); VENOUS PARTIAL PRESSURE CO2 36.1 mmHg (38.0-50.0); VENOUS PARTIAL PRESSURE O2 51.3 mmHg (30.0-50.0); VENOUS PH 7.441 UNITS (7.330-7.430); VENOUS STANDARD HCO3 24.5 MMOL/L; VENOUS TOTAL CO2 25.1 MMOL/L (24.0-28.0)
[2025-06-16] MEDS: NS (Normal Saline) 0.9% 1,000 ML IV ONE (09:21)
[2025-06-16 09:24] LABS: BASO # 0.0 10^3/uL (0.0-0.2); BASO % 0.5 % (0.0-1.0); EOS # 0.0 10^3/uL (0.0-0.5); EOS % 0.0 % (0.0-3.0); LYMPH # 1.4 10^3/uL (1.5-5.0); LYMPH % 17.8 % (24.0-44.0); MONO # 0.4 10^3/uL (0.0-0.8); MONO % 5.6 % (2.0-8.0); NEUTROPHILS # 5.8 10^3/uL (1.5-8.5); NEUTROPHILS % 75.8 % (36.0-66.0); PLATELET COUNT, AUTOMATED 332 10^3/uL (150-450)
[2025-06-16] MEDS: NALOXONE 2 MG/2 ML SYRINGE IV STA (09:38)
[2025-06-16 09:51] LABS: ETHYL ALCOHOL (ETHANOL) 0.042 % (0.000-0.010)
[2025-06-16 09:52] LABS: SALICYLATE LEVEL < 3.0 MG/DL (<30)
[2025-06-16 10:17] LABS: ALT/SGPT 13 U/L (7.0-40); AST/SGOT 17 U/L (<34); CALCIUM LEVEL 9.0 MG/DL (8.5-10.1); CARBON DIOXIDE LEVEL 26 MMOL/L (20-31); CHLORIDE LEVEL 100 MMOL/L (98-107); CPK CREATINE PHOSPHOKINASE 129 U/L (46-171); CREATININE FOR GFR 0.60 MG/DL (0.70-1.30); GLOMERULAR FILTRATION RATE > 90.0 (>56); POTASSIUM SERUM 3.3 MMOL/L (3.5-5.1); SODIUM LEVEL 140 MMOL/L (136-145)
[2025-06-16 10:21] LABS: OSMOLALITY SERUM 315 MOSM/KG (275-295)
[2025-06-16 10:28] LABS: BARBITURATES URINE NEGATIVE (NEGATIVE); BENZODIAZEPINES URINE NEGATIVE (NEGATIVE); METHADONE URINE NEGATIVE (NEGATIVE); OPIATES URINE NEGATIVE (NEGATIVE); PHENCYCLIDINE URINE NEGATIVE (NEGATIVE)
[2025-06-16 10:31] LABS: AMPHETAMINES LEVEL URINE POSITIVE (NEGATIVE); CANNABINOIDS URINE POSITIVE (NEGATIVE); COCAINE METABOLITE URINE POSITIVE (NEGATIVE)
[2025-06-16] MEDS: LanTUS (INSULIN GLARGINE INJ) 1 UNITS/0.01 ML SC ONE (11:32)
[2025-06-16] MEDS: POTASSIUM CHLORIDE 10MEQ SR TABLET PO ONE (11:43)
[2025-06-16 12:18] VITALS: BP 158/91; TEMP 96.8; O2SAT 100
[2025-06-16] MEDS: OVERDOSE RESCUE KIT XX SCH (12:19)
== END 2025-06-16 12:50 | disposition home or self-care (01) ==
LOC: M ED 08:56 → EDBD 08:56 → M ED 12:50
DX: E10.65 Type 1 diabetes mellitus with hyperglycemia (principal); F14.10 Cocaine abuse, uncomplicated; I10 Essential (primary) hypertension; E78.00 Pure hypercholesterolemia, unspecified; Z88.8 Allergy status to other drugs, medicaments and biological substances; Z79.82 Long term (current) use of aspirin; Z79.899 Other long term (current) drug therapy; Z79.4 Long term (current) use of insulin
CPT/HCPCS: 70450; 80048; 80076; 80143; 80307; 82077; 82140; 82550; 82803; 83930; 84443; 85025; 87486; 87581; 87633; 87798; 93005; 93041; 94760; 96361; 96374; 99285; J1815; J2312